=== PATIENT | female | born 1960 | race Caucasian/White ===

== ENCOUNTER 2025-09-25 09:54 | Outpatient (REF) | payer MEDICARE, MEDICAID, SELFPAY ==
--- NOTE | ~2025-09-25 | XR_ITS ---
EXAMINATION: XR LUMBOSACRAL SPINE CLINICAL INFORMATION: M43.16 - Spondylolisthesis, lumbar region COMPARISON: None available. TECHNIQUE: Lateral views in neutral, flexion and extension position. AP view. Upright position. FINDINGS: S-shaped curvature of the thoracolumbar spine with a levoconvex rotoscoliosis apex at L2. Grade 1 anterolisthesis at L4-5 in neutral position which persists during flexion and extension position. Grade 1 retrolisthesis at L1 to in neutral position which remains unchanged during flexion and extension position. Multilevel marginal osteophyte formation and endplate sclerosis decreased intervertebral disc height throughout the lower thoracic and upper lumbar spine. No acute cortical disruption. Vascular calcifications, aorta. XR/XR lumbar spine 4V min IMPRESSION: Multilevel thoracolumbar spondylosis and levoconvex rotoscoliosis. Grade 1 anterolisthesis L4-5 and grade 1 retrolisthesis L1-2 without instability. Atherosclerosis disease. Electronically signed by: Colby Howard MD 09/25/2025 11:36 AM MADELYN TEIXEIRA
== END 2025-09-25 09:55 | disposition home or self-care (01) ==
LOC: HO.HOSX 09:54
PROVIDERS: PCP Nurse Practitioner Family; Referring Provider Nurse Practitioner Family; Visit Provider Neurological Surgery
DX: M43.16 Spondylolisthesis, lumbar region (principal)
CPT/HCPCS: 72110; 99202

== ENCOUNTER 2025-09-25 09:54 | Outpatient (AMB) | payer MEDICARE, MEDICAID, SELFPAY ==
--- OUTSIDE RECORDS SUMMARY | 2025-09-23 14:40 | XMS_ITS | Encounter Summary ---
Author Organization [facility] Address [address] [place] [address] Phone Care Team Providers Care Supervisor Stave Cutting Name Role Phone Henry Velez MD Unavailable [email or web address] Ike Gomez DO Unavailable [phone] Aryan Sears MD Unavailable + [phone] Shi Espana NP Primary Care Provider [phone]- [phone] Reason for Referral * MRI/CAT Scan - Authorized Specialty Diagnoses / Procedures Referred By Roddy marie Referred To Contact Radiology Diagnoses Rotator cuff arthropathy of left shoulder Procedures CT Shoulder (Left) Mars Berman PA-C [address] [place] [address] [place] [address] Phone: tel: fax: [email or web address] Referral ID Status Reason Start Date Expiration Date V isits Requested Visits Authorized [id number] Authorized 09/23/2025 09/23/2026 1 1 Reason for Visit * Reason Comments Shoulder Pain Encounter Details Date Type Department Care Team ([facility] st Contact Info) Description 09/23/2025 2:40 PM EST Office Visit [facility] Orthopedics & Sports Medicine [address] [place] [phone] Ike Gomez DO [address] [facility] [place] [place] [address] Mars Berman PA-C [address] [place] [address] [place] [phone] [email or web address] Rotator cuff arthropathy of left shoulder (Primary Dx); Shoulder pain; Primary osteoarthritis of left shoulder Social History Tobacco Use Types Packs/Day Years Used Date Smoking Tobacco: Every Day Cigarettes 0.3 45 Smokeless Tobacco: Never Alcohol Use Standard Drinks/Week Comments No 0 (1 standard drink = 0.6 oz pur e alcohol) none for 30 yrs Education Answer Date Recorded Are you interested in more education? Not on eric e 03/09/2023 Are you concerned about learning? Not on file 03/09/2023 No 03/09/2023 No 03/09/2023 Digital Access Answer Date Recorded No 04/08/2023 No 04/08/2023 Reliable internet access at home? Not on file 04/08/2023 Device with a working camera? Not on file Intimate Partner Violence Answer Date R ecorded Are you denied basic needs s uch as food, clothing, or medical care? No 12/05/2023 In the past 12 months have y ou been in a relationship with a person who hurts, threatens, or tries to control you? No 12/05/2023 Are you denied basic needs s uch as food, clothing, or medical care? No 12/05/2023 In the past 12 months have y ou been in a relationship with a person who hurts, threatens, or tries to control you? No 12/05/2023 Comments No Sex and Gender Information Value Date Recorded Sex Assigned at Female 06/22/2023 7:36 AM EDT Legal Sex Female 2:57 PM EDT Gender Identity Female 06/22/2023 7:36 AM EDT Sexual Orientation Straight 06/22/2023 7: 36 AM EDT documented as of this encounter Progress Notes * Mars Berman PA-C - 09/23/2025 2:40 PM EST [facility] Orthopedics & Sports Medicine Date of Visit: 09/24/2025 Reason for Appointment: Chronic bilateral shoulder pain, worse symptomatically on the left HPI: Sharon Garza is a 64 y.o. female who presents today for evaluation of acute on chronic bilateral shoulder pain. Patient has a history of shoulder pain dating back approximately 10 years. Has undergone extensive conservative care for both shoulders including multiple steroid injections performed through her imaging nurse office, greater than 6 months of physical therapy, oral oxycodone, rest, ice and activity modification. Despite the conservative care, patient feels that the left shoulder specifically has worsened in pain and also feels unstable with motion. Patient comes in today to discuss possible shoulder replacement as prior to this appointment has exhausted nonsurgical options Exam: In general, the patient is in no acute distress. Affect is appropriate. Alert and oriented ??3. Breathing is nonlabored. Left shoulder examination reveals painful passive range of motion with notable crepitus and instability. Supraspinatus strength 4- out of 5. Infraspinatus and subscapularis 4+ out of 5. Patient with significant discomfort during range of motion evaluation Right shoulder examination reveals no deformity. Passive range of motion near full. 4 out of 5 strength testing of supraspinatus. Imaging: X-rays were performed in the office today and independently interpreted by provider. Rightshoulder x-rays reveal no acute abnormality. Mild glenohumeral osteoarthritis with high riding humeral head. Left shoulder with advanced glenohumeral arthritis and [id number] articulation within the posterior aspect. High riding humeral head consistent with rotator cuff tear. Acromion and humeralhead with near articulation Asssessment: Bilateral rotator cuff arthropathy with left shoulder worse radiographically and symptomatically Plan: We had an extensive conversation today regarding the radiographic and clinical exam findings.Again, patient has been undergoing extensive conservative care prior to coming to this appointment and the main objective today was to discuss shoulder replacement as she feels that conservative treatment is exhausted. Recent steroid injection performed with her imaging nurse 2 months prior which was performed on both shoulders. Patient has met Dr. Gomez previously and wishes to move forward with preoperative planning for a left reverse shoulder replacement. CT scan will be ordered for preop planning and patient will follow-up with Dr. Gomez after imaging to discuss surgical timing and booking.. All questions were answered to the patient's content today. Sharon Garza verbalizes understanding and agreement with plan. Mars Berman PA-C documented in this encounter Plan of Treatment Scheduled Orders Name Type Priority Associated Diagnoses Orde r Schedule CT Shoulder (Left) Imaging Routine Rotator cuff arthropathy of left shoulder Expected: 09/23/2025, Expires: 09/23/2026 documented as of this encounter Visit Diagnoses Diagnosis Rotator cuff arthropathy of left shoulder- Primary Shoulder pain Pain in joint, shoulder region Primary osteoarthritis of left shoulder documented in this encounter Care Teams Supervisor Stave Cutting Relationship Specialty Start Date End Date Shi Espana NP [address] [place] [phone] [email or web address] PCP - General Nurse Practitioner 09/29/24 Henry Velez MD [email or web address] Historical LMR Provider 08/30/17 Ike Gomez DO [address] [place] [address] Orthopedics & Sports Medicine, [facility] [place] [address] [email or web address] Historical LMR Provider 08/30/17 Aryan Sears MD [address] [place] [phone] Historical LMR Provider 08/30/17 documented as of this encounter Additional Source Comments The information contained in this document represents components of the legal health record. It is not the complete legal health record.[facility]
--- OUTSIDE RECORDS SUMMARY | 2025-09-23 14:47 | XMS_ITS | Encounter Summary ---
Author Organization [facility] Address [address] [place] [address] Phone Care Team Providers Care Manufacturing Millwright Name Role Phone Henry Velez MD Unavailable [email or web address] Ike Gomez DO Unavailable [phone] Aryan Sears MD Unavailable [phone] Shi Espana NP Primary Care Provider [phone] Encounter Details Date Type Department Care Team (Late st Contact Info) Description 09/23/2025 2:47 PM EST - 09/23/2025 2:54 PM [facility] Hospital Encounter [address] [address] Mars Berman PA-C [address] [place] [address] [place] [address] [email or web address] Arrived Discharge Disposition: Home or Self Care Social History Tobacco Use Types Packs/Day Years [...] AM EDT documented as of this encounter Medications at Time of Discharge albuterol (PROAIR HFA) 90 mcg/actuation inhaler Inhale 2 puffs into the lungs 4 (four) times a day. betamethasone, augmented, (DIPROLENE) 0.05 % ointment APPLY OINTMENT TOPICALLY ONCE DAILY TO AFFECTED AREA(S). DO NOT EXCEED 45 GRAMS PER WEEK 11/14/2023 buPROPion (WELLBUTRIN XL) 300 MG ER 24 hr tablet Take 300 mg by mouth daily. 04/30/2024 cetirizine (ZYRTEC) 10 MG tablet Take 1 tablet by mouth as needed. 09/18/2023 cholecalciferol (VITAMIN D3) 4,000 unit tablet Take 4,000 Units by mouth daily. fluconazole (DIFLUCAN) 150 MG tablet as needed. 02/14/2020 hydroCHLOROthiazide (HYDRODIURIL) 25 MG tablet 1 tablet ipratropium/albuter ol sulfate (COMBIVENT INHL) Inhale 1 puff into the lungs 4 (four) times a day as needed. levothyroxine (SYNTHROID) 50 MCG tablet 1 tab(s) daily lidocaine 5 % ointment APPLY OINTMENT EXTERNALLY 4 TIMES DAILY TO AFFECTED AREA NEEDED 36 g 07/28/2021 meloxicam (MOBIC) 15 MG tabletIndications:O steoarthritis of right knee TAKE ONE TABLET BY MOUTH DAILY 90 tablet 12/20/2021 multivit with calcium,iron,min (MULTIPLE VITAMIN, WOMENS ORAL) Take by mouth. ondansetron (ZOFRAN-ODT) 4 MG disintegrating tablet Take 1 tablet (4 mg total) by mouth every 6 (six) hours as needed. 30 tablet 02/15/2019 oxyCODONE HCl 10 mg TabIndications:Oste oarthritis of left knee Take 1 tablet (10 mg total) by mouth every 6 (six) hours as needed. 112 tablet 09/22/2021 pantoprazole sodium (PANTOPRAZOLE ORAL) Take by mouth daily. polyethylene glycol (MIRALAX) 17 gram/dose powder Take 17 g by mouth daily. pregabalin (LYRICA) 150 MG capsuleIndications: Fibromyalgia Take 1 capsule by mouth 3 times daily 90 capsule 12/27/2021 RESTASIS 0.05 % suspension Place 1 drop into each eye 2 (two) times a day. 10/07/2023 clonazePAM (KLONOPIN) 0.5 MG tablet Take by mouth 2 (two) times a day as needed. 11/16/2023 famotidine (PEPCID) 40 MG tablet 40 mg 2 (two) times a day. 03/01/2020 LASTACAFT 0.25 % Drop 3 07/12/2019 topiramate (TOPAMAX ORAL) Take by mouth daily. documented as of this encounter Plan of Treatment Not on file documented as of this encounter Procedures Procedure Name Priority Date/Time Associated Diagnosis Comments XR SHOULDER 2 VIEWS (LEFT) Routine 09/23/2025 3:09 PM EST Shoulder pain documented in this encounter Results * XR SHOULDER 2 VIEWS (LEFT) (09/23/2025 3:09 PM EST) Narrative SYSTEMGENERATED, DOCUMENTATION - 09/23/2025 3:09 PM EST This image report has been auto-finalized and has not been read by a Radiologist. Interpretation has been included in the provider encounter note for this date of service. Mars Berman PA-C IMG XR UPPER EXTREMITY Mita l Result documented in this encounter Visit Diagnoses Diagnosis Shoulder pain Pain in joint, shoulder region documented in this encounter Care Teams Manufacturing Millwright Relationship Specialty Start Date End Date Shi Espana NP [address] [place] [phone] [email or web address] PCP - General Nurse Practitioner 09/29/24 Henry Velez MD [email or web address] Historical LMR Provider 08/30/17 Ike Gomez DO [address] [place] [address] Orthopedics & Sports Medicine, [place] [address] [email or web address] Historical LMR Provider 08/30/17 Aryan Sears MD [address] [place] [phone] Historical LMR Provider 08/30/17 documented as of this encounter Additional Source Comments The information contained in this document represents components of the legal health record. It is not the complete legal health record.[facility]
--- OUTSIDE RECORDS SUMMARY | 2025-09-23 14:55 | XMS_ITS | Encounter Summary ---
Author Organization [facility] Address [address] [place] [address] Phone Care Team Providers Care Wood Box Maker Name Role Phone Henry Velez MD Unavailable [email or web address] Ike Gomez DO Unavailable [phone] Aryan Sears MD Unavailable [phone] Shi Espana NP Primary Care Provider [phone] Encounter Details Date Type Department Care Team (Late st Contact Info) Description 09/23/2025 2:55 PM EST - 09/23/2025 11:59 PM [facility] Hospital Encounter [address] [address] Mars Berman PA-C [address] [place] [address] [place] [address] [email or web address] Arrived Discharge Disposition: Home or [...] Associated Diagnosis Comments XR SHOULDER 2 VIEWS (RIGHT) Routine 09/23/2025 3:09 PM EST Chronic right shoulder pain documented in this encounter Results * XR SHOULDER 2 VIEWS (RIGHT) (09/23/2025 3:09 PM EST) Narrative SYSTEMGENERATED, DOCUMENTATION - 09/23/2025 3:09 PM EST This image report has been auto-finalized and has not been read by a Radiologist. Interpretation has been included in the provider encounter note for this date of service. Mars Berman PA-C IMG XR UPPER EXTREMITY Mita l Result documented in this encounter Visit Diagnoses Diagnosis Chronic right shoulder pain Pain in joint, shoulder region documented in this encounter Care Teams Wood Box Maker Relationship Specialty Start Date End Date Shi Espana NP [address] [place] [phone] [email or web address] [email or web address] PCP - General Nurse Practitioner 09/29/24 Henry Velez MD [email or web address] Historical LMR Provider 08/30/17 Ike Gomez DO [address] [place] [address] Orthopedics & Sports Medicine, [place] [address] [email or web address] Historical LMR Provider 08/30/17 Aryan Sears MD [address] [place] [phone] Historical LMR Provider 08/30/17 documented as of this encounter Additional Source Comments The information contained in this document represents components of the legal health record. It is not the complete legal health record.[facility]
--- NOTE | 2025-09-25 10:07 | A.SPINEOV_ITS ---
Vital Signs 09/25/25 10:08 Height 5 ft 3 in Weight 188 lb 7 oz BMI 33.4 Intake Visit Reasons: lumbar back pain Intake Note: Ms. Garza is here today c/o low back pain, that radiate to the legs. MRI done at [facility]. Chief Client Officer Required: No Allergies Latex, Natural Rubber Allergy (Severe, Verified 09/25/25 10:09) Anaphylaxis Physical Exam Vital Signs: BMI result Body Mass Index 33.4 Assessment & Plan Assessment & Plan (1) Spondylolisthesis of lumbar region: Code(s): M43.16 - Spondylolisthesis, lumbar region Category: Medical Plan: Dear colleague On 09/25/2025, I saw for 2nd opinion Sharon Garza to the office today with a chief complaint of severe chronic low back pain. HPI: This 64-year-old female has a 10+ history of chronic low back pain. The pain is always present. She rates the pain 8/10. She has tried multiple injections over time with varying success. She had multiple course of physical therapy. The last course significantly aggravated her symptoms. Bending forward she can do but extension is very painful. She does have a sciatic component intermittently going into the right thigh and groin. Before COV, she was able to do daily hikes and walks but in the last few years her social life has significantly being impacted. She can not walk for more than a half a mi or stand longer than 30 minutes. Sitting is painful after half an hour. She denies weakness or numbness. [facility] who offered her an L4-5 lumbar fusion. The following conservative treatment options were tried without success antiinflammatories, tylenol, physical therapy, cortisone shots. PMH: Hypertension, GERD, hypothyroidism, Fibromyalgia, esophageal spam for which myotomy. Stable cardiac murmur. Shortness of breath. She does see a manager mountain and uses inhalers. Medications: Inhaler, hydrochlorothiazide, levothyroxine, hydrochloroquine, pantoprazole, oxycodone 10 mg 4 times a day since 2004. Allergies: Latex. Social history: . Nonsmoker Physical Exam: Pleasant female. Height 5'3 weight 188 lb. Inspection of the lumbar spine reveals no deformities. Extension is very uncomfortable. There is diffuse pain on palpation over the lumbar spine. She is in significant agony when she changes positions. Straight leg raise produces back pain. No motor or sensory deficits. Radiological Studies: MRI done at [facility] on 04/26/2025 shows a grade 1-2 L4-5 spondylolisthesis with associated central spinal stenosis in addition there is lumbar degenerative disc disease L3-4 L1-L2. A dynamic lumbar x-ray shows an unstable L4-5 grade 2 spondylolisthesis that moves with flexion-extension. In addition there is a mild dextroscoliosis at L1-L2. Impression/Plan: This patient is suffering from progressive intractable low back pain due to an unstable grade 2 L4-5 spondylolisthesis. She failed conservative management and the symptoms are debilitating and interfering with the social life. I offered her an oblique lumbar interbody fusion L4-5. She is scheduled for 12/01/2025. We will get the notes from the manager mountain and staff command and control officer. She recently had a clearance done by her primary care physician. Thank you for allowing me to participate in your patients care. total time spent was 50 minutes in counseling ,coordination of plan, personal review of imaging, surgical decision making and subsequent plan Gumaro Luz MD, PhD Spine Fellowship Trained Neurosurgeon Director, [facility] Orders: Orders XR lumbar spine 4V min Today M43.16 - Spondylolisthesis, lumbar region Coding Level of Care Code New Pt Level 4 (29815) Diagnoses Spondylolisthesis of lumbar region M43.16
[2025-09-25 10:08] VITALS: BMI 33.4
--- OUTSIDE RECORDS SUMMARY | 2025-09-25 11:14 | XMS_ITS | Encounter Summary ---
Author Organization [facility] Address [address] [place] [address] Phone Care Team Providers Care Dark Room Attendant Name Role Phone Henry Velez MD Unavailable [email or web address] Ike Gomez DO Unavailable Aryan Sears MD Unavailable Shi Espana SUPPLY SERVICE WORKER Primary Care Provider Shi Espana NP Primary Care Provider [phone] Encounter Details Date Type Department Care Team (Latest Contact Info) Description 11/13/2023 Transcribe Orders Virtual Department [address] [place] [address] Peter Ascencio MD [address] [place] [phone] [email or web address] Achalasia (Primary Dx) Social History Tobacco Use Types Packs/Day Years Used Date Smoking Tobacco: Former Cigarettes 0.3 45 1 953 - 1998 Smokeless Tobacco: Never Alcohol Use Standard Drinks/Week Comments No 0 (1 standard drink = 0.6 oz pur e alcohol) Education Answer Date Recorded Are you interested in more education? Not on eric e 03/09/2023 Are you concerned about learning? Not on file 03/09/2023 No 03/09/2023 No 03/09/2023 Digital Access Answer Date Recorded No 04/08/2023 No 04/08/2023 Reliable internet access at home? Not on file 04/08/2023 Device with a working camera? Not on file Comments No Sex and Gender Information Value Date Recorded Sex Assigned at Female 06/22/2023 7:36 AM EDT Legal Sex Female 2:57 PM EDT Gender Identity Female 06/22/2023 7:36 AM EDT Sexual Orientation Straight 06/22/2023 7: 36 AM EDT documented as of this encounter Plan of Treatment Not on file documented as of this encounter Results * FL BARIUM SWALLOW ESOPHAGRAM DOUBLE CONTRAST (11/30/2023 9:09 AM EST) Anatomical Region Laterality Modality Chest Computed Radiogr aphy 11/30/2023 12:1 9 PM EST Impressions 11/30/2023 12:37 PM EST Esophageal spasm with smooth narrowing at the level of the GE junction causing persistent hold-up to passage of a 13 mm barium tablet. No current findings pathognomonic for achalasia. FLUOROSCOPY TIME: 2 minutes 33 seconds NUMBER OF IMAGES: [id number] ATTESTATION: I, Peter Olson as teaching physician, have reviewed the images for this case and if necessary edited the report originally created by Stas Joyner. Narrative 11/30/2023 12:37 PM EST BARIUM SWALLOW ESOPHAGRAM DOUBLE CONTRAST HISTORY: Achalasia. Dysphasia. Epigastric pain. COMPARISON: Cervical spine radiograph 07/26/2020. OPERATORS: Stas Joyner SUPERVISING PHYSICIAN: Peter Olson TECHNIQUE: Double contrast barium swallow examination was performed with Sodium Carbonate and Barium. FINDINGS: A preliminary lateral view of the neck demonstrates moderate multilevel degenerative disc changes, most pronounced at C4-5, C5-6, C6-7 with small ventral osteophytes present. ESOPHAGUS: Motility: Severe esophageal dysmotility evidenced by spasm in the distal half. Mucosa: No gross mucosal pathology demonstrated fluoroscopically. Distensibility: Smooth narrowing at the level of the GE junction with persistent retention of a 13 mm barium tablet. Direct visualization is recommended. Normal distensibility of the upper and middle esophagus, without luminal dilatation. GASTROESOPHAGEAL JUNCTION: Small sliding hiatal hernia elicited during a prone Valsalva maneuver. GASTROESOPHAGEAL REFLUX: None observed. Procedure Note Peter Olson MD - 11/30/2023 BARIUM SWALLOW ESOPHAGRAM DOUBLE CONTRAST HISTORY: Achalasia. Dysphasia. Epigastric pain. COMPARISON: Cervical spine radiograph 07/26/2020. OPERATORS: Stas Joyner SUPERVISING PHYSICIAN: Peter Olson TECHNIQUE: Double contrast barium swallow examination was performed withSodium Carbonate and Barium. FINDINGS: A preliminary lateral view of the neck demonstrates moderate multileveldegenerative disc changes, most pronounced at C4-5, C5-6, C6-7 with smallventral osteophytes present. ESOPHAGUS: Motility: Severe esophageal dysmotility evidenced by spasm in the distalhalf. Mucosa: No gross mucosal pathology demonstrated fluoroscopically. Distensibility: Smooth narrowing at the level of the GE junction withpersistent retention of a 13 mm barium tablet. Direct visualization isrecommended. Normal distensibility of the upper and middle esophagus,without luminal dilatation. GASTROESOPHAGEAL JUNCTION: Small sliding hiatal hernia elicited during aprone Valsalva maneuver. GASTROESOPHAGEAL REFLUX: None observed. IMPRESSION: Esophageal spasm with smooth narrowing at the level of the GE junctioncausing persistent hold-up to passage of a 13 mm barium tablet. No currentfindings pathognomonic for achalasia. FLUOROSCOPY TIME: 2 minutes 33 seconds NUMBER OF IMAGES: [id number] ATTESTATION: I, Peter Olson as teaching physician, have reviewed theimages for this case and if necessary edited the report originally createdby Stas Joyner. Peter Ascencio MD IM FL MISC Final Resu lt documented in this encounter Visit Diagnoses Diagnosis Achalasia- Primary Achalasia and cardiospasm Achalasia Achalasia and cardiospasm documented in this encounter Care Teams Dark Room Attendant Relationship Specialty Start Date End Date Shi Espana NP [address] [place] [phone] [email or web address] PCP - General Nurse Practitioner 06/28/23 09/28/24 Shi Espana NP [address] [place] [phone] [email or web address] [email or web address] [email or web address] south PCP - General Nurse Practitioner 09/29/24 Henry Velez MD [email or web address] Historical LMR Provider 08/30/17 Ike Gomez DO [address] [place] [address] Orthopedics & Sports Medicine, [place] [address] [email or web address] Historical LMR Provider 08/30/17 Aryan Sears MD [address] [place] [phone] Historical LMR Provider 08/30/17 documented as of this encounter Additional Source Comments The information contained in this document represents components of the legal health record. It is not the complete legal health record.[facility]
--- OUTSIDE RECORDS SUMMARY | 2025-09-25 11:14 | XMS_ITS | Encounter Summary ---
Author Organization [facility] Address [address] [place] [address] Phone Care Team Providers Care Compensation Vice President Name Role Phone Henry Velez MD Unavailable [email or web address] Ike Gomez DO Unavailable [phone] Aryan Sears MD Unavailable [phone] Shi Espana NP Primary Care Provider [phone] Shi Espana NP Primary Care Provider [phone] Encounter Details Date Type Department Care Team (Late st Contact Info) Description 10/15/2023 Procedure Pass [facility] Endoscopy Admitting Dept Virtual Department [address] [place] [address] Social History Tobacco Use Types Packs/Day Years [...] on file documented as of this encounter Visit Diagnoses Not on filedocumented in this encounter Care Teams Compensation Vice President Relationship Specialty Start Date End Date Shi Espana NP [address] [place] [address] [email or web address] PCP - General Nurse Practitioner 06/28/23 09/28/24 Shi Espana NP [address] [place] [address] [email or web address] [facility] PCP - General Nurse Practitioner 09/29/24 Henry Velez MD [email or web address] Historical LMR Provider 08/30/17 Ike Gomez DO [address] [place] [address] Orthopedics & Sports Medicine, [place] [address] [email or web address] Historical LMR Provider 08/30/17 Arayn Sears MD [address] [place] [address] Historical LMR Provider 08/30/17 documented as of this encounter Additional Source Comments The information contained in this document represents components of the legal health record. It is not the complete legal health record.[facility]
--- OUTSIDE RECORDS SUMMARY | 2025-09-25 11:14 | XMS_ITS | Encounter Summary ---
Author Organization [facility] Address [address] [place] [address] Phone Care Team Providers Care Surface Grinding Machine Hand Name Role Phone Henry Velez MD Unavailable [email or web address] Ike Gomez DO Unavailable [phone] Aryan Sears MD Unavailable Amy Sawyer PA-C Unavailable [phone] Lorri Haynes MD Unavailable [phone] Aryan Sears MD Primary Care Provider Shi Espana NP Primary Care Provider Shi Espana NP Primary Care Provider [phone] Reason for Referral * Physical Therapy (Routine) - Closed Specialty Diagnoses / Procedures Referred By Roddy marie Referred To Contact Physical Therapy Diagnoses Encounter for rehabilitation Left Knee Pain Procedures Evaluate & Treat Shi Espana NP Phone: tel: fax: [email or web address] [address] [place] [address] Phone: tel: Referral ID Status Reason Start Date Expiration Date Visits Re quested Visits Authorized [id number] Closed 01/26/2020 11/11/2020 99 99 Encounter Details Date Type Department Care Team (Latest Contact Info) Description 01/07/2020 Transcribe Orders [facility] [address] [place] [address] Shi Espana NP [address] [place] [address] [email or web address] Alliancegeneral [facility] Encounter for rehabilitation (Primary Dx) Social History Tobacco Use Types Packs/Day Years Used Date Smoking Tobacco: Former Cigarettes 0.3 45 1 223 - 6341 Smokeless Tobacco: Never Alcohol Use Standard Drinks/Week Comments No 0 (1 standard drink = 0.6 oz pur e alcohol) Comments No Sex and Gender Information Value Date Recorded Sex Assigned at Female 06/22/2023 7:36 AM EDT Legal Sex Female 2:57 PM EDT Gender Identity Female 06/22/2023 7:36 AM EDT Sexual Orientation Straight 06/22/2023 7: 36 AM EDT documented as of this encounter Plan of Treatment Not on file documented as of this encounter Procedures Procedure Name Priority Date/Time Associated Diagnosis Comments AMB REFERRAL TO [facility] PHYSICAL THERAPY Routine 01/26/2020 6:18 PM EDT Encounter for rehabilitation documented in this encounter Results * Ambulatory referral to [facility] Physical Therapy (01/26/2020 6:18 PM EDT) Shi Espana NP AMB [facility] REFERRALS Final Resu lt documented in this encounter Visit Diagnoses Diagnosis Encounter for rehabilitation- Primary documented in this encounter Care Teams Surface Grinding Machine Hand Relationship Specialty Start Date End Date Aryan Sears MD [address] [place] [address] PCP - General Family Medicine 09/27/17 06/27/23 Shi Espana NP [address] [place] [address] [email or web address] PCP - General Nurse Practitioner 06/28/23 09/28/24 Shi Espana NP [address] [place] [address] [email or web address] PCP - General Nurse Practitioner 09/29/24 Henry Velez MD [email or web address] Historical LMR Provider 08/30/17 Ike Gomez DO [address] [facility] Orth[facility] Sports [facility], [place], [place] [id number] [email or web address] Historical LMR Provider 08/30/17 Aryan Sears MD [address] [place] [phone] Historical LMR Provider 08/30/17 Amy Sawyer, SARYC [address] [place] [address] [facility], [place] [address] Historical LMR Provider 08/30/17 11/19/21 Lorri Haynes MD 4 [facility], [place] [address] Historical LMR Provider 08/30/17 documented as of this encounter Additional Source Comments The information contained in this document represents components of the legal health record. It is not the complete legal health record.[facility]
--- OUTSIDE RECORDS SUMMARY | 2025-09-25 11:14 | XMS_ITS | Encounter Summary ---
Author Organization [facility] Address [address] [place] [address] Phone Care Team Providers Care Roof Tile Layer Name Role Phone Henry Velez MD Unavailable [facility] [email or web address] Ike Gomez DO Unavailable Aryan Sears MD Unavailable Amy Sawyer PA-C Unavailable Lorri Haynes MD Unavailable Aryan Sears MD Primary Care Provider Shi Espana NP Primary Care Provider Shi Espana CUTTING TABLE OPERATOR Primary Care Provider Encounter Details Date Type Department Care Team (Late st Contact Info) Description 01/24/2019 Ancillary Orders Virtual Department [address] [place] [address] Aryan Sears MD [address] [place] [address] Social History Tobacco Use Types Packs/Day Years Used Date Smoking Tobacco: Former Cigarettes 0.3 45 1 953 - 1998 Smokeless Tobacco: Never Alcohol Use Standard Drinks/Week Comments No 0 (1 standard drink = 0.6 oz pur e alcohol) Comments Unknown Sex and Gender Information Value Date Recorded Sex Assigned at Female 06/22/2023 7:36 AM EDT Legal Sex Female 2:57 PM EDT Gender Identity Female 06/22/2023 7:36 AM EDT Sexual Orientation Straight 06/22/2023 7: 36 AM EDT documented as of this encounter Plan of Treatment Not on file documented as of this encounter Visit Diagnoses Not on filedocumented in this encounter Care Teams Roof Tile Layer Relationship Specialty Start Date End Date Aryan Sears MD [address] [place] [phone] PCP - General Family Medicine 09/27/17 06/27/23 Shi Espana NP [address] [place] [phone] [email or web address], [email or web address] PCP - General Nurse Practitioner 06/28/23 09/28/24 Shi Espana NP [address] [place] [address] [email or web address] PCP - General Nurse Practitioner 09/29/24 Henry Velez MD [email or web address] Historical LMR Provider 08/30/17 Ike Gomez DO [address] [place] [address] Orthopedics & Sports Medicine, [place] [address] [email or web address] Historical LMR Provider 08/30/17 Aryan Sears MD [address] [place] [phone] Historical LMR Provider 08/30/17 Amy Sawyer PA-C 4 [facility] Orthopedics & Sports Medicine, [facility] [place] [address] [email or web address] Historical LMR Provider 08/30/17 11/19/21 Lorri Haynes MD 4 [facility] Orthopedics & Sports [facility], [facility] [place] [address] [email or web address] Historical LMR Provider 08/30/17 documented as of this encounter Additional Source Comments The information contained in this document represents components of the legal health record. It is not the complete legal health record.[facility]
--- OUTSIDE RECORDS SUMMARY | 2025-09-25 11:14 | XMS_ITS | Encounter Summary ---
Author Organization [facility] Address [address] [place] [address] Phone Care Team Providers Care Lapel Padder Name Role Phone Aryan Sears MD Primary Care Provider Henry Velez MD Unavailable [email or web address] Ike Gomez DO Unavailable [phone] Aryan Sears MD Unavailable Amy Sawyer PA-C Unavailable [phone] Lorri Haynes MD Unavailable Aryan Sears MD Primary Care Provider Shi Espana NP Primary Care Provider Shi Espana NP Primary Care Provider Encounter Details Date Type Department Care Team (Latest Contact Info) Description 08/08/2017 Ancillary Orders [facility] Department of Orthopaedic Surgery, Arthroplasty Service [address] [facility], 3rd Floor, [address] [place] [address] Fany Estrella MD, PhD [address] [place] [address] [address] [place] [address] [email or web address] Left knee pain, unspecified chronicity; Right knee pain, unspecified chronicity Social History Tobacco Use Types Packs/Day Years Used Date Smoking Tobacco: Never Comments Unknown Sex and Gender Information Value Date Recorded Sex Assigned at Female 06/22/2023 7:36 AM EDT Legal Sex Female 2:57 PM EDT Gender Identity Female 06/22/2023 7:36 AM EDT Sexual Orientation Straight 06/22/2023 7: 36 AM EDT documented as of this encounter Plan of Treatment Not on file documented as of this encounter Results * XR KNEE 4 OR MORE VIEWS (RIGHT) (08/08/2017 12:20 PM EDT) Anatomical Region Laterality Modality Knee Right Radiographic Luz Marina ging 08/08/2017 1:31 PM EDT Impressions 08/08/2017 4:44 PM EDT Moderate degenerative changes of the left knee lateral compartment with large joint effusion. Narrative 08/08/2017 4:44 PM EDT XR KNEE 4 OR MORE VIEWS (RIGHT), XR KNEE 4 OR MORE VIEWS (LEFT) COMPARISON: None FINDINGS: Left knee: Moderate lateral compartment joint space narrowing with osteophyte formation and valgus angulation. Large joint effusion. No fracture or dislocation. The patellofemoral compartment shows normal alignment and minimal degenerative changes. Right knee: Minimal degenerative changes without joint space narrowing. No joint effusion. No fracture or dislocation. Patellofemoral compartment shows normal alignment. Procedure Note Arsenio Smith MD - 08/08/2017 XR KNEE 4 OR MORE VIEWS (RIGHT), XR KNEE 4 OR MORE VIEWS (LEFT) COMPARISON: None FINDINGS: Left knee: Moderate lateral compartment joint space narrowing withosteophyte formation and valgus angulation. Large joint effusion. No fracture or dislocation. The patellofemoral compartment shows normal alignment andminimal degenerative changes. Right knee: Minimal degenerative changes without joint space narrowing. Nojoint effusion. No fracture or dislocation. Patellofemoral compartment showsnormal alignment. IMPRESSION: Moderate degenerative changes of the left knee lateral compartment withlarge joint effusion. Fany Estrella MD, PhD IMG XR LOWER EXTREMITY Fi nal Result documented in this encounter Visit Diagnoses Diagnosis Left knee pain, unspecified chronicity Right knee pain, unspecified chronicity Left knee pain, unspecified chronicity Right knee pain, unspecified chronicity documented in this encounter Care Teams Lapel Padder Relationship Specialty Start Date End Date Aryan Sears MD [address] [place] [phone] PCP - General Family Medicine 08/08/17 09/26/17 Aryan Sears MD [address] [place] [phone] PCP - General Family Medicine 09/27/17 06/27/23 Shi Espana NP [address] [place] [phone] [email or web address] PCP - General Nurse Practitioner 06/28/23 09/28/24 Shi Espana, ANA [address] [place] [phone] [email or web address] Securityhawthorn children[facility] psychiatric [facility] PCP - General Nurse Practitioner 09/29/24 Henry Velez MD [email or web address] Historical LMR Provider 08/30/17 Ike Gomez DO [address] [place] [address] Orthopedics & Sports Medicine, [place] [address] [email or web address] Historical LMR Provider 08/30/17 Aryan Sears MD [address] [place] [phone] Historical LMR Provider 08/30/17 Amy Sawyer PA-C [facility] Orth[facility]ics & Sports Medicine, [facility] [place] [address] [email or web address] Historical LMR Provider 08/30/17 11/19/21 Lorri Haynes MD [facility] Orthopedics & Sports [facility], [facility] [place] [address] [email or web address] Historical LMR Provider 08/30/17 documented as of this encounter Additional Source Comments The information contained in this document represents components of the legal health record. It is not the complete legal health record.[facility]
--- OUTSIDE RECORDS SUMMARY | 2025-09-25 11:14 | XMS_ITS | Encounter Summary ---
Author Organization [facility] Address [address] [place] [address] Phone Care Team Providers Care Spooler Rubber Strand Name Role Phone Henry Velez MD Unavailable [email or web address] Ike Gomez DO Unavailable [phone] Aryan Sears MD Unavailable Amy Sawyer PA-C Unavailable [phone] Lorri Haynes MD Unavailable [phone] Aryan Sears MD Primary Care Provider Shi Espana NP Primary Care Provider Shi Espana SAILBOAT CAPTAIN Primary Care Provider [phone] Encounter Details Date Type Department Care Team (Late st Contact Info) Description 02/12/2019 Procedure Pass OR Admitting Dept - Virtual Department [address] [place] [address] Social History Tobacco Use Types Packs/Day Years [...] on filedocumented in this encounter Care Teams Spooler Rubber Strand Relationship Specialty Start Date End Date Aryan Sears MD [address] [place] [phone] PCP - General Family Medicine 09/27/17 06/27/23 Shi Espana NP [address] [place] [phone] [email or web address] PCP - General Nurse Practitioner 06/28/23 09/28/24 Shi Espana NP [address] [place] [phone] [email or web address] PCP - General Nurse Practitioner 09/29/24 Henry Velez MD [email or web address] Historical LMR Provider 08/30/17 Ike Gomez DO [address] [place] [address] Orthopedics & Sports [facility], [place] [address] [email or web address] Historical LMR Provider 08/30/17 Aryan Sears MD [address] [place] [phone] Historical LMR Provider 08/30/17 Amy Swayer PA-C [address] [place] [address] Orthopedics Sports [facility], [place] [address] Historical LMR Provider 08/30/17 11/19/21 Lorri Haynes MD [address] [place] [address] Orthopedics & Sports Medicine, [facility] [place] [address] [email or web address] Historical LMR Provider 08/30/17 documented as of this encounter Additional Source Comments The information contained in this document represents components of the legal health record. It is not the complete legal health record.[facility]
--- OUTSIDE RECORDS SUMMARY | 2025-09-25 11:14 | XMS_ITS | Encounter Summary ---
Author Organization [facility] Address [address] [place] [address] Phone Care Team Providers Care Rotary Shear Worker Helper Name Role Phone Henry Velez MD Unavailable [email or web address] Ike Gomez DO Unavailable [phone] Aryan Sears MD Unavailable [phone] Shi Espana NP Primary Care Provider [phone] Shi Espana NP Primary Care Provider [phone] Encounter Details Date Type Department Care Team (Late st Contact Info) Description 12/05/2023 Procedure Pass [facility] Endoscopy Admitting Dept Virtual Department [address] [place] [address] Social History Tobacco Use Types Packs/Day Years [...] on filedocumented in this encounter Care Teams Rotary Shear Worker Helper Relationship Specialty Start Date End Date Shi Espana NP [address] [place] [address] [email or web address] PCP - General Nurse Practitioner 06/28/23 09/28/24 Shi Espana NP [address] [place] [address] [email or web address] PCP - General Nurse Practitioner 09/29/24 Henry Velez MD [email or web address] Historical LMR Provider 08/30/17 Ike Gomez DO [address] [place] [address] Orthopedics & Sports Medicine, [place] [address] [email or web address] Historical LMR Provider 08/30/17 Aryan Sears MD [address] [place] [phone] Historical LMR Provider 08/30/17 documented as of this encounter Additional Source Comments The information contained in this document represents components of the legal health record. It is not the complete legal health record.[facility]
--- OUTSIDE RECORDS SUMMARY | 2025-09-25 11:15 | XMS_ITS | Encounter Summary ---
Author Organization [facility] Address [address] [place] [address] Phone Care Team Providers Care Outside Contractor Sales Name Role Phone Henry Velez MD Unavailable [email or web address] Ike Gomez DO Unavailable [phone] Aryan Sears MD Unavailable [phone] Shi Espana NP Primary Care Provider [phone] Encounter Details Date Type Department Care Team (Late st Contact Info) Description 09/23/2025 Ancillary Orders [address] [address] Mars Berman PA-C [address] [place] [address] [place] [address] [email or web address] Chronic right shoulder pain (Primary Dx) Social History Tobacco Use Types [...] as of this encounter Results * XR SHOULDER 2 [...] encounter Visit Diagnoses Diagnosis Chronic right shoulder pain- Primary Pain in joint, shoulder region Chronic right shoulder pain Pain in joint, shoulder region documented in this encounter Care Teams Outside Contractor Sales Relationship Specialty Start Date End Date Shi Espana NP [address] [place] [phone] [email or web address] PCP - General Nurse Practitioner 09/29/24 Henry Velez MD [email or web address] Historical LMR Provider 08/30/17 Ike Gomez DO [address] [place] [address] Orthopedics & Sports Medicine, [place] [address] [email or web address] Historical LMR Provider 08/30/17 Aryan Sears MD [address] [place] [phone] Historical LMR Provider 08/30/17 documented as of this encounter Additional Source Comments The information contained in this document represents components of the legal health record. It is not the complete legal health record.[facility]
--- OUTSIDE RECORDS SUMMARY | 2025-09-25 11:15 | XMS_ITS | Encounter Summary ---
Author Organization [facility] Address [address] [place] [address] Phone Care Team Providers Care Personal Care Worker Name Role Phone Henry Velez MD Unavailable [email or web address] Ike Gomez DO Unavailable [phone] Aryan Sears MD Unavailable [phone] Shi Espana NP Primary Care Provider [phone] Encounter Details Date Type Department Care Team (Late st Contact Info) Description 09/23/2025 Ancillary Orders [facility] Orthopedics & Sports Medicine [address] [place] [address] Mars Berman PA-C [address] [place] [address] [place] [address] [email or web address] Shoulder pain (Primary Dx) Social History Tobacco Use [...] Shoulder pain Pain in joint, shoulder region Shoulder pain- Primary Pain in joint, shoulder region documented in this encounter Care Teams Personal Care Worker Relationship Specialty Start Date End Date Shi Espana NP [address] [place] [phone] [email or web address] PCP - General Nurse Practitioner 09/29/24 Henry Velez MD [email or web address] Historical LMR Provider 08/30/17 Ike Gomez DO [address] [place] [address] Orthopedics & Sports Medicine, [place] [address] [email or web address] Historical LMR Provider 08/30/17 Aryan Sears MD [address] [place] [phone] Historical LMR Provider 08/30/17 documented as of this encounter Additional Source Comments The information contained in this document represents components of the legal health record. It is not the complete legal health record.[facility]
--- OUTSIDE RECORDS SUMMARY | 2025-09-25 11:16 | XMS_ITS | Continuity of Care Document ---
Author Organization [facility] Address [address] [place] [address] [place] [phone] Phone [phone] Care Team Providers Care Manufacturing Development Engineer Name Role Phone Kain Person Care Team Information Bottom Bleacher U navailable Social History Type Date Description Comments Sex Female Sex Unknown
--- OUTSIDE RECORDS SUMMARY | 2025-09-25 11:16 | XMS_ITS | Clinical Summary ---
Author Organization [facility] Address [address] [place] [phone] Phone Care Team Providers Care Necktie Stitcher Name Role Phone Henry Velez MD Unavailable [email or web address] DO Unavailable [phone] Aryan Sears MD Unavailable [phone] Shi Espana NP Primary Care Provider Allergies Active Allergy Reactions Criticality Noted Date Comments Avocado Other (See Comments) High 09/12/2018 Kiwi & Banana-Closes throat; Povidone-Iodine Dermatitis,Rash Low 10/04/2015 Celecoxib 02/10/2019 Heart palpitations Grape Hives High 12/04/2023 Itchy throat grapes and raisins Latex Dermatitis,Rash Low 10/05/2015 Morphine Nausea and/or Vomiting Other 09/12/2018 Gold, rash Adhesive Tape-Silicones Rash Low 02/10/2019 I am ok for today for this procedure, its when its left for a long time Medications hydroCHLOROthiazid e (HYDRODIURIL) 25 MG tablet 1 tablet Active levothyroxine (SYNTHROID) 50 MCG tablet 1 tab(s) daily Activ e albuterol (PROAIR HFA) 90 mcg/actuation inhaler Inhale 2 puffs into the lungs 4 (four) times a day. Active ipratropium/albute rol sulfate (COMBIVENT INHL) Inhale 1 puff into the lungs 4 (four) times a day as needed. Active cholecalciferol (VITAMIN D3) 4,000 unit tablet Take 4,000 Units by mouth daily. Active multivit with calcium,iron,min (MULTIPLE VITAMIN, WOMENS ORAL) Take by mouth. Ac tive ondansetron (ZOFRAN-ODT) 4 MG disintegrating tablet Take 1 tablet (4 mg total) by mouth every 6 (six) hours as needed. 30 tablet 9 Active LASTACAFT 0.25 % Drop 3 9 Active famotidine (PEPCID) 40 MG tablet 40 mg 2 (two) times a day. 0 Active fluconazole (DIFLUCAN) 150 MG tablet as needed. 0 Active lidocaine 5 % ointment APPLY OINTMENT EXTERNALLY 4 TIMES DAILY TO AFFECTED AREA NEEDED 36 g 1 Active oxyCODONE HCl 10 mg TabIndications:Ost eoarthritis of left knee Take 1 tablet (10 mg total) by mouth every 6 (six) hours as needed. 112 tablet 1 Active meloxicam (MOBIC) 15 MG tabletIndications: Osteoarthritis of right knee TAKE ONE TABLET BY MOUTH DAILY 90 tablet 2 Active pregabalin (LYRICA) 150 MG capsuleIndications :Fibromyalgia Take 1 capsule by mouth 3 times daily 90 capsule 2 Active RESTASIS 0.05 % suspension Place 1 drop into each eye 2 (two) times a day. 3 Active clonazePAM (KLONOPIN) 0.5 MG tablet Take by mouth 2 (two) times a day as needed. 4 Active cetirizine (ZYRTEC) 10 MG tablet Take 1 tablet by mouth as needed. 3 Active betamethasone, augmented, (DIPROLENE) 0.05 % ointment APPLY OINTMENT TOPICALLY ONCE DAILY TO AFFECTED AREA(S). DO NOT EXCEED 45 GRAMS PER WEEK 4 Active topiramate (TOPAMAX ORAL) Take by mouth daily. Active polyethylene glycol (MIRALAX) 17 gram/dose powder Take 17 g by mouth daily. Active pantoprazole sodium (PANTOPRAZOLE ORAL) Take by mouth daily. Active buPROPion (WELLBUTRIN XL) 300 MG ER 24 hr tablet Take 300 mg by mouth daily. 4 Active Active Problems Problem Noted Date Diagnosed Date Opioid use 06/28/2023 Chronic knee pain after tota l replacement of left knee joint 06/28/2023 Osteoarthritis of cervical spine 07/14/2020 Assessment & Plan (11/29/2020 12:05 PM EST): Reviewed x-ray indicating multilevel spondylitic changes. She will receive injection today into the areas which are most tender. Spinal enthesopathy of cervical region 0 Assessment & Plan (02/28/2021 11:07 AM EDT): Acute flare will be treated with local injection therapy today. Assessment & Plan (09/01/2020 11:33 AM EDT): Acute flare will be treated with local injection therapy today and continuance of current medication. Assessment & Plan (07/14/2020 11:12 AM EDT): She appears to have limited range of motion and cervicalgia from multilevel cervical spondylitic changes. No long track signs or signs of cervical radiculopathy. The enthesopathic flare will be treated with local injection therapy today. She does have a good pillow to use. She will stay on her same pain medications. She will avoid any heavy lifting. We will get an x-ray of the cervical spine today. Subluxation of right sternoclavicular joint 07/14 Assessment & Plan (08/06/2019 9:09 AM EDT): More tenddr and painful so I will refer her to ortho for surgical evaluation. GERD (gastroesophageal reflux disease) 9 Assessment & Plan (08/28/2025 1:48 PM EDT): Increase symptoms of regurgitation following POEM's procedure 02/2025. She becomes tearful discussing this. I offered baclofen, but she refuses having had complications from Flexeril. Will ask her to follow-up with Dr. Villa at [facility], to discuss possibility of antireflux surgery. Orders: Ambulatory referral to External General Surgery Rotator cuff impingement syndrome of right lizbeth donnie 06/12/2019 Assessment & Plan (10/03/2021 5:23 PM EST): Hx of RTC surgery Right shoulder Today Hx and exam consistent with RTC impingement Injection today-please see note Encouraged HEP PT and or MRI if remains symptomatic Assessment & Plan (06/12/2019 10:49 AM EDT): Patient is having an acute flare of right shoulder impingement should be treated with a local injection of cortisone today. She will follow this with contrast baths, pendulum and wall walking motion exercises. History of left knee replacement 03/12/2019 Assessment & Plan (08/06/2019 9:23 AM EDT): Doing well with left knee prosthesis. Continue exercise program. Assessment & Plan (03/26/2019 12:30 PM EDT): Doing well. 10 you home exercise program. Assessment & Plan (03/12/2019 11:14 AM EDT): Doing well 1 month status post left total knee replacement. Continue PT. Continue excellent job at weight control. Medications unchanged. Admission on 02/12/2019, Discharged on 02/15/2019 Component Date Value Ref Range Status WHOLE BLOOD GLUCOSE 02/12/2019 98 70 - 99 mg/dL Final WHOLE BLOOD GLUCOSE 02/12/2019 106* 70 - 99 mg/dL Final SODIUM 02/13/2019 142 133 - 146 mmol/L Final CHLORIDE 02/13/2019 101 96 - 108 mmol/L Final POTASSIUM 02/13/2019 4.2 3.3 - 5.1 mmol/L Final CO2 02/13/2019 33 21 - 35 mmol/L Final BUN 02/13/2019 12 6 - 19 mg/dL Final CREATININE 02/13/2019 1.00 0.5 - 1.5 mg/dL Final GLUCOSE 02/13/2019 106* 70 - 99 mg/dL Final CALCIUM 02/13/2019 8.9 8.4 - 10.3 mg/dL Final EGFR 02/13/2019 62 >59 mL/min/1.73m2 Final If patient is black, multiply result by 1.159. Estimated glomerular filtration rate calculated using the CKD-EPI equation. ANION GAP 02/13/2019 12 10 - 20 mmol/L Final WBC 02/13/2019 8.47 3.40 - 11.20 K/uL Final RBC 02/13/2019 3.99 3.80 - 4.80 M/uL Final HGB 02/13/2019 11.5* 12.0 - 15.0 g/dL Final HCT 02/13/2019 35.0* 36.0 - 46.0 % Final PLT 02/13/2019 159 130 - 400 K/uL Final MCV 02/13/2019 87.7 79.0 - 98.0 fL Final MCH 02/13/2019 28.8 27.0 - 34.8 pg Final MCHC 02/13/2019 32.9 31.5 - 36.0 g/dL Final RDW 02/13/2019 12.7 10.8 - 14.6 % Final MPV 02/13/2019 10.2 9.4 - 12.4 fl Final NRBC 02/13/2019 0.00 0.00 /100 WBCs Final ABSOLUTE NRBC 02/13/2019 0.00 0.00 K/uL Final WBC 02/14/2019 9.46 3.40 - 11.20 K/uL Final RBC 02/14/2019 3.97 3.80 - 4.80 M/uL Final HGB 02/14/2019 11.6* 12.0 - 15.0 g/dL Final HCT 02/14/2019 35.1* 36.0 - 46.0 % Final PLT 02/14/2019 189 130 - 400 K/uL Final MCV 02/14/2019 88.4 79.0 - 98.0 fL Final MCH 02/14/2019 29.2 27.0 - 34.8 pg Final MCHC 02/14/2019 33.0 31.5 - 36.0 g/dL Final RDW 02/14/2019 12.9 10.8 - 14.6 % Final MPV 02/14/2019 9.6 9.4 - 12.4 fl Final NRBC 02/14/2019 0.00 0.00 /100 WBCs Final ABSOLUTE NRBC 02/14/2019 0.00 0.00 K/uL Final Office Visit on 01/28/2019 Component Date Value Ref Range Status Specimen Source/ Description 01/28/2019 NASAL AND AXILLA NASAL Final SPECIAL REQUESTS 01/28/2019 None Final CULTURE / TEST 01/28/2019 No MRSA or MSSA isolated Final REPORT STATUS 01/28/2019 01/30/2019 FINAL Final Hospital Outpatient Visit on 01/23/2019 Component Date Value Ref Range Status Ventricular Rate EKG/MIN 01/23/2019 72 BPM Final Atrial Rate 01/23/2019 72 BPM Final [place] Interval 01/23/2019 172 ms Final QRS Duration 01/23/2019 92 ms Final QT Interval 01/23/2019 392 ms Final QTC Interval 01/23/2019 429 ms Final P [place] 01/23/2019 39 degrees Final R Wave [place] 01/23/2019 41 degrees Final T Wave [place] 01/23/2019 38 degrees Final Hospital Outpatient Visit on 01/15/2019 Component Date Value Ref Range Status HEMOGLOBIN A1C 01/15/2019 5.1 4.3 - 5.8 % Final WBC 01/15/2019 6.16 3.40 - 11.20 K/uL Final RBC 01/15/2019 4.78 3.80 - 4.80 M/uL Final HGB 01/15/2019 13.9 12.0 - 15.0 g/dL Final HCT 01/15/2019 42.4 36.0 - 46.0 % Final PLT 01/15/2019 178 130 - 400 K/uL Final MCV 01/15/2019 88.7 79.0 - 98.0 fL Final MCH 01/15/2019 29.1 27.0 - 34.8 pg Final MCHC 01/15/2019 32.8 31.5 - 36.0 g/dL Final RDW 01/15/2019 13.0 10.8 - 14.6 % Final MPV 01/15/2019 11.2 9.4 - 12.4 fl Final NRBC 01/15/2019 0.00 0.00 /100 WBCs Final ABSOLUTE NRBC 01/15/2019 0.00 0.00 K/uL Final SODIUM 01/15/2019 144 133 - 146 mmol/L Final CHLORIDE 01/15/2019 101 96 - 108 mmol/L Final POTASSIUM 01/15/2019 3.8 3.3 - 5.1 mmol/L Final CO2 01/15/2019 31 21 - 35 mmol/L Final BUN 01/15/2019 16 6 - 19 mg/dL Final CREATININE 01/15/2019 1.00 0.5 - 1.5 mg/dL Final GLUCOSE 01/15/2019 68* 70 - 99 mg/dL Final CALCIUM 01/15/2019 9.5 8.4 - 10.3 mg/dL Final EGFR 01/15/2019 62 >59 mL/min/1.73m2 Final If patient is black, multiply result by 1.159. Estimated glomerular filtration rate calculated using the CKD-EPI equation. ANION GAP 01/15/2019 16 10 - 20 mmol/L Final Osteoarthritis of right sternoclavicular joint 0 03/12/2019 Assessment & Plan (03/26/2019 12:31 PM EDT): Mildly tender to palpation. No worse than before. Greater trochanteric bursitis of left hip 2018 Assessment & Plan (12/25/2018 10:47 AM EST): Acute flare of left trochanteric bursitis will be treated with iliotibial band stretches, contrast baths, and local injection today. Fibromyalgia 09/12/2018 Overview (09/12/2018): Patient reported Assessment & Plan (10/03/2021 5:27 PM EST): Hx of FM and chronic pain Currently on oxycodone for pain control Discussion today about substantial risks of adverse effects I do not manage this condition with chronic opioids . If pt wishes to stay on this medication I would recommend discussing with their Primary Care Provider or we can refer them to a Pain Management Clinic. Pt understands and will consider referral to pain center Thank you. I discussed changing Lexapro to Cymbalta which sometime is better for painccontrol than Lexapro but pt declined Encouraged regular exercise Assessment & Plan (06/06/2021 11:34 AM EDT): Patient has active fibromyalgia which is stable though painful. Also diffuse axial and appendicular osteoarthritis is stable though painful. Reviewed medication list and discussed risks and benefits of current medications which were left unchanged. Laboratory work was reviewed. More than 50% of this 33-minute visit was spent in [id number] conversation with the patient going over the natural history and treatment of fibromyalgia and osteoarthritis, risks and benefits of her medication and coordination of my care with out of her primary care physician. No visits with results within 3 Month(s) from this visit. Latest known visit with results is: Hospital Outpatient Visit on 12/02/2019 Component Date Value Ref Range Status SODIUM 12/02/2019 141 133 - 146 mmol/L Final POTASSIUM 12/02/2019 4.2 3.3 - 5.1 mmol/L Final CHLORIDE 12/02/2019 98 96 - 108 mmol/L Final CO2 12/02/2019 30 21 - 35 mmol/L Final BUN 12/02/2019 16 6 - 19 mg/dL Final CREATININE 12/02/2019 1.10 0.5 - 1.5 mg/dL Final GLUCOSE 12/02/2019 101* 70 - 99 mg/dL Final ALBUMIN 12/02/2019 4.6 3.9 - 4.8 g/dL Final TOTAL PROTEIN 12/02/2019 7.4 6.5 - 8.0 g/dL Final CALCIUM 12/02/2019 9.8 8.4 - 10.3 mg/dL Final ALKALINE PHOSPHATASE 12/02/2019 75 39 - 117 U/L Final TOTAL BILIRUBIN 12/02/2019 0.3 0.0 - 1.2 mg/dL Final AST 12/02/2019 28 0 - 37 U/L Final ALT 12/02/2019 19 0 - 40 U/L Final GLOBULIN 12/02/2019 2.8 1 - 4.8 g/dL Final EGFR 12/02/2019 55* >59 mL/min/1.73m2 Final If patient is black, multiply result by 1.159. Estimated glomerular filtration rate calculated using the CKD-EPI equation. ANION GAP 12/02/2019 17 10 - 20 mmol/L Final TSH 12/02/2019 1.42 0.27 - 4.20 uIU/mL Final WBC 12/02/2019 6.50 3.40 - 11.20 K/uL Final RBC 12/02/2019 4.73 3.80 - 4.80 M/uL Final HGB 12/02/2019 13.6 12.0 - 15.0 g/dL Final HCT 12/02/2019 40.5 36.0 - 46.0 % Final PLT 12/02/2019 195 130 - 400 K/uL Final MCV 12/02/2019 85.6 79.0 - 98.0 fL Final MCH 12/02/2019 28.8 27.0 - 34.8 pg Final MCHC 12/02/2019 33.6 31.5 - 36.0 g/dL Final RDW 12/02/2019 13.0 10.8 - 14.6 % Final MPV 12/02/2019 11.3 9.4 - 12.4 fl Final NRBC 12/02/2019 0.00 0.00 /100 WBCs Final ABSOLUTE NRBC 12/02/2019 0.00 0.00 K/uL Final DIFF METHOD 12/02/2019 Auto Final NEUTS 12/02/2019 62.0 45.30 - 77.70 % Final LYMPHS 12/02/2019 25.1 12.30 - 39.70 % Final MONOS 12/02/2019 7.5 4.10 - 12.80 % Final EOS 12/02/2019 3.7 0 - 7.2 % Final BASOS 12/02/2019 1.2 0 - 2.80 % Final Granulocytes, immature (%) 12/02/2019 0.5 0.0 - 0.9 % Final ABSOLUTE NEUTS 12/02/2019 4.03 1.40 - 7.70 K/uL Final ABSOLUTE LYMPHS 12/02/2019 1.63 0.60 - 3.20 K/uL Final ABSOLUTE MONOS 12/02/2019 0.49 0.11 - 0.59 K/uL Final ABSOLUTE EOS 12/02/2019 0.24 0.01 - 0.50 K/uL Final ABSOLUTE BASOS 12/02/2019 0.08 0.00 - 0.08 K/uL Final Granulocytes, immature 12/02/2019 0.03 0.00 - 0.05 K/uL Final Assessment & Plan (02/28/2021 11:08 AM EDT): Doing reasonably well on combination of meloxicam and Lyrica. Risks and benefits of continued use of meloxicam and Lyrica discussed and previous lab work was reviewed. I also reviewed the results of her evaluation on her use of narcotic analgesics. There were no signs or symptoms of diversion or polypharmacy. She may continue on same prescription unchanged. No visits with results within 3 Month(s) from this visit. Latest known visit with results is: Hospital Outpatient Visit on 12/02/2019 Component Date Value Ref Range Status SODIUM 12/02/2019 141 133 - 146 mmol/L Final POTASSIUM 12/02/2019 4.2 3.3 - 5.1 mmol/L Final CHLORIDE 12/02/2019 98 96 - 108 mmol/L Final CO2 12/02/2019 30 21 - 35 mmol/L Final BUN 12/02/2019 16 6 - 19 mg/dL Final CREATININE 12/02/2019 1.10 0.5 - 1.5 mg/dL Final GLUCOSE 12/02/2019 101* 70 - 99 mg/dL Final ALBUMIN 12/02/2019 4.6 3.9 - 4.8 g/dL Final TOTAL PROTEIN 12/02/2019 7.4 6.5 - 8.0 g/dL Final CALCIUM 12/02/2019 9.8 8.4 - 10.3 mg/dL Final ALKALINE PHOSPHATASE 12/02/2019 75 39 - 117 U/L Final TOTAL BILIRUBIN 12/02/2019 0.3 0.0 - 1.2 mg/dL Final AST 12/02/2019 28 0 - 37 U/L Final ALT 12/02/2019 19 0 - 40 U/L Final GLOBULIN 12/02/2019 2.8 1 - 4.8 g/dL Final EGFR 12/02/2019 55* >59 mL/min/1.73m2 Final If patient is black, multiply result by 1.159. Estimated glomerular filtration rate calculated using the CKD-EPI equation. ANION GAP 12/02/2019 17 10 - 20 mmol/L Final TSH 12/02/2019 1.42 0.27 - 4.20 uIU/mL Final WBC 12/02/2019 6.50 3.40 - 11.20 K/uL Final RBC 12/02/2019 4.73 3.80 - 4.80 M/uL Final HGB 12/02/2019 13.6 12.0 - 15.0 g/dL Final HCT 12/02/2019 40.5 36.0 - 46.0 % Final PLT 12/02/2019 195 130 - 400 K/uL Final MCV 12/02/2019 85.6 79.0 - 98.0 fL Final MCH 12/02/2019 28.8 27.0 - 34.8 pg Final MCHC 12/02/2019 33.6 31.5 - 36.0 g/dL Final RDW 12/02/2019 13.0 10.8 - 14.6 % Final MPV 12/02/2019 11.3 9.4 - 12.4 fl Final NRBC 12/02/2019 0.00 0.00 /100 WBCs Final ABSOLUTE NRBC 12/02/2019 0.00 0.00 K/uL Final DIFF METHOD 12/02/2019 Auto Final NEUTS 12/02/2019 62.0 45.30 - 77.70 % Final LYMPHS 12/02/2019 25.1 12.30 - 39.70 % Final MONOS 12/02/2019 7.5 4.10 - 12.80 % Final EOS 12/02/2019 3.7 0 - 7.2 % Final BASOS 12/02/2019 1.2 0 - 2.80 % Final Granulocytes, immature (%) 12/02/2019 0.5 0.0 - 0.9 % Final ABSOLUTE NEUTS 12/02/2019 4.03 1.40 - 7.70 K/uL Final ABSOLUTE LYMPHS 12/02/2019 1.63 0.60 - 3.20 K/uL Final ABSOLUTE MONOS 12/02/2019 0.49 0.11 - 0.59 K/uL Final ABSOLUTE EOS 12/02/2019 0.24 0.01 - 0.50 K/uL Final ABSOLUTE BASOS 12/02/2019 0.08 0.00 - 0.08 K/uL Final Granulocytes, immature 12/02/2019 0.03 0.00 - 0.05 K/uL Final Assessment & Plan (11/29/2020 12:06 PM EST): Continues to have fatigue, poor sleep and generalized stiffness. Low inflammatory diet, meloxicam, Wellbutrin, pregabalin, and vitamin D as well as stretching core strengthening and general cardiovascular exercise are all recommended for this. Laboratory work was reviewed. No visits with results within 3 Month(s) from this visit. Latest known visit with results is: Hospital Outpatient Visit on 12/02/2019 Component Date Value Ref Range Status SODIUM 12/02/2019 141 133 - 146 mmol/L Final POTASSIUM 12/02/2019 4.2 3.3 - 5.1 mmol/L Final CHLORIDE 12/02/2019 98 96 - 108 mmol/L Final CO2 12/02/2019 30 21 - 35 mmol/L Final BUN 12/02/2019 16 6 - 19 mg/dL Final CREATININE 12/02/2019 1.10 0.5 - 1.5 mg/dL Final GLUCOSE 12/02/2019 101* 70 - 99 mg/dL Final ALBUMIN 12/02/2019 4.6 3.9 - 4.8 g/dL Final TOTAL PROTEIN 12/02/2019 7.4 6.5 - 8.0 g/dL Final CALCIUM 12/02/2019 9.8 8.4 - 10.3 mg/dL Final ALKALINE PHOSPHATASE 12/02/2019 75 39 - 117 U/L Final TOTAL BILIRUBIN 12/02/2019 0.3 0.0 - 1.2 mg/dL Final AST 12/02/2019 28 0 - 37 U/L Final ALT 12/02/2019 19 0 - 40 U/L Final GLOBULIN 12/02/2019 2.8 1 - 4.8 g/dL Final EGFR 12/02/2019 55* >59 mL/min/1.73m2 Final If patient is black, multiply result by 1.159. Estimated glomerular filtration rate calculated using the CKD-EPI equation. ANION GAP 12/02/2019 17 10 - 20 mmol/L Final TSH 12/02/2019 1.42 0.27 - 4.20 uIU/mL Final WBC 12/02/2019 6.50 3.40 - 11.20 K/uL Final RBC 12/02/2019 4.73 3.80 - 4.80 M/uL Final HGB 12/02/2019 13.6 12.0 - 15.0 g/dL Final HCT 12/02/2019 40.5 36.0 - 46.0 % Final PLT 12/02/2019 195 130 - 400 K/uL Final MCV 12/02/2019 85.6 79.0 - 98.0 fL Final MCH 12/02/2019 28.8 27.0 - 34.8 pg Final MCHC 12/02/2019 33.6 31.5 - 36.0 g/dL Final RDW 12/02/2019 13.0 10.8 - 14.6 % Final MPV 12/02/2019 11.3 9.4 - 12.4 fl Final NRBC 12/02/2019 0.00 0.00 /100 WBCs Final ABSOLUTE NRBC 12/02/2019 0.00 0.00 K/uL Final DIFF METHOD 12/02/2019 Auto Final NEUTS 12/02/2019 62.0 45.30 - 77.70 % Final LYMPHS 12/02/2019 25.1 12.30 - 39.70 % Final MONOS 12/02/2019 7.5 4.10 - 12.80 % Final EOS 12/02/2019 3.7 0 - 7.2 % Final BASOS 12/02/2019 1.2 0 - 2.80 % Final Granulocytes, immature (%) 12/02/2019 0.5 0.0 - 0.9 % Final ABSOLUTE NEUTS 12/02/2019 4.03 1.40 - 7.70 K/uL Final ABSOLUTE LYMPHS 12/02/2019 1.63 0.60 - 3.20 K/uL Final ABSOLUTE MONOS 12/02/2019 0.49 0.11 - 0.59 K/uL Final ABSOLUTE EOS 12/02/2019 0.24 0.01 - 0.50 K/uL Final ABSOLUTE BASOS 12/02/2019 0.08 0.00 - 0.08 K/uL Final Granulocytes, immature 12/02/2019 0.03 0.00 - 0.05 K/uL Final Assessment & Plan (12/02/2019 11:06 AM EST): Active but stable in the continued source of pain. Continue Wellbutrin. Continue Lyrica. Continue vitamin D3. Obtain lab work today. Previous lab work was reviewed. Discussed addition of low inflammatory Mediterranean style diet and stress reduction techniques. No visits with results within 3 Month(s) from this visit. Latest known visit with results is: Hospital Outpatient Visit on 04/18/2019 Component Date Value Ref Range Status C REACTIVE PROTEIN 04/18/2019 0.6 0.0 - 4.0 mg/L Final SODIUM 04/18/2019 141 133 - 146 mmol/L Final POTASSIUM 04/18/2019 3.6 3.3 - 5.1 mmol/L Final CHLORIDE 04/18/2019 102 96 - 108 mmol/L Final CO2 04/18/2019 28 21 - 35 mmol/L Final BUN 04/18/2019 19 6 - 19 mg/dL Final CREATININE 04/18/2019 1.00 0.5 - 1.5 mg/dL Final GLUCOSE 04/18/2019 101* 70 - 99 mg/dL Final ALBUMIN 04/18/2019 4.3 3.9 - 4.8 g/dL Final TOTAL PROTEIN 04/18/2019 7.2 6.5 - 8.0 g/dL Final CALCIUM 04/18/2019 9.4 8.4 - 10.3 mg/dL Final ALKALINE PHOSPHATASE 04/18/2019 91 39 - 117 U/L Final TOTAL BILIRUBIN 04/18/2019 0.2 0.0 - 1.2 mg/dL Final AST 04/18/2019 24 0 - 37 U/L Final ALT 04/18/2019 15 0 - 40 U/L Final GLOBULIN 04/18/2019 2.9 1 - 4.8 g/dL Final EGFR 04/18/2019 62 >59 mL/min/1.73m2 Final If patient is black, multiply result by 1.159. Estimated glomerular filtration rate calculated using the CKD-EPI equation. ANION GAP 04/18/2019 15 10 - 20 mmol/L Final WBC 04/18/2019 7.23 3.40 - 11.20 K/uL Final RBC 04/18/2019 4.54 3.80 - 4.80 M/uL Final HGB 04/18/2019 12.7 12.0 - 15.0 g/dL Final HCT 04/18/2019 38.4 36.0 - 46.0 % Final PLT 04/18/2019 191 130 - 400 K/uL Final MCV 04/18/2019 84.6 79.0 - 98.0 fL Final MCH 04/18/2019 28.0 27.0 - 34.8 pg Final MCHC 04/18/2019 33.1 31.5 - 36.0 g/dL Final RDW 04/18/2019 13.1 10.8 - 14.6 % Final MPV 04/18/2019 11.5 9.4 - 12.4 fl Final NRBC 04/18/2019 0.00 0.00 /100 WBCs Final ABSOLUTE NRBC 04/18/2019 0.00 0.00 K/uL Final Assessment & Plan (08/06/2019 9:22 AM EDT): Multiple tender points, chronic fatigue, poor but improved sleep and absence of inflammatory arthropathy and improvement on Lyrica all suggest active fibromyalgia. She will continue on Lyrica and meloxicam and vitamin D and use as needed narcotic analgesics. She will continue on Wellbutrin as per her primary care physician. Her laboratory work was reviewed. No visits with results within 3 Month(s) from this visit. Latest known visit with results is: Hospital Outpatient Visit on 04/18/2019 Component Date Value Ref Range Status C REACTIVE PROTEIN 04/18/2019 0.6 0.0 - 4.0 mg/L Final SODIUM 04/18/2019 141 133 - 146 mmol/L Final POTASSIUM 04/18/2019 3.6 3.3 - 5.1 mmol/L Final CHLORIDE 04/18/2019 102 96 - 108 mmol/L Final CO2 04/18/2019 28 21 - 35 mmol/L Final BUN 04/18/2019 19 6 - 19 mg/dL Final CREATININE 04/18/2019 1.00 0.5 - 1.5 mg/dL Final GLUCOSE 04/18/2019 101* 70 - 99 mg/dL Final ALBUMIN 04/18/2019 4.3 3.9 - 4.8 g/dL Final TOTAL PROTEIN 04/18/2019 7.2 6.5 - 8.0 g/dL Final CALCIUM 04/18/2019 9.4 8.4 - 10.3 mg/dL Final ALKALINE PHOSPHATASE 04/18/2019 91 39 - 117 U/L Final TOTAL BILIRUBIN 04/18/2019 0.2 0.0 - 1.2 mg/dL Final AST 04/18/2019 24 0 - 37 U/L Final ALT 04/18/2019 15 0 - 40 U/L Final GLOBULIN 04/18/2019 2.9 1 - 4.8 g/dL Final EGFR 04/18/2019 62 >59 mL/min/1.73m2 Final If patient is black, multiply result by 1.159. Estimated glomerular filtration rate calculated using the CKD-EPI equation. ANION GAP 04/18/2019 15 10 - 20 mmol/L Final WBC 04/18/2019 7.23 3.40 - 11.20 K/uL Final RBC 04/18/2019 4.54 3.80 - 4.80 M/uL Final HGB 04/18/2019 12.7 12.0 - 15.0 g/dL Final HCT 04/18/2019 38.4 36.0 - 46.0 % Final PLT 04/18/2019 191 130 - 400 K/uL Final MCV 04/18/2019 84.6 79.0 - 98.0 fL Final MCH 04/18/2019 28.0 27.0 - 34.8 pg Final MCHC 04/18/2019 33.1 31.5 - 36.0 g/dL Final RDW 04/18/2019 13.1 10.8 - 14.6 % Final MPV 04/18/2019 11.5 9.4 - 12.4 fl Final NRBC 04/18/2019 0.00 0.00 /100 WBCs Final ABSOLUTE NRBC 04/18/2019 0.00 0.00 K/uL Final Assessment & Plan (03/26/2019 12:32 PM EDT): Multiple tender points on exam, generalized flare. She needs a lot of rest, continuance of meloxicam at 15 mg daily, Lyrica and 150 mg at bedtime, and 10 mg of oxycodone 3 times daily as needed. Risks and benefits of continued use of oxycodone were discussed. Assessment & Plan (03/12/2019 11:15 AM EDT): Active but stable with multiple tender points and continued fatigue and stiffness. She is better than she has been in a long time. The source of severe pain is been removed and she has lost quite a bit of weight and is on a relatively low inflammatory diet. She will continue on Lyrica. Recently refilled. Assessment & Plan (09/23/2018 11:13 AM EST): We discussed her fibromyalgia. She will remain on current medication. Lyrica has been helpful. Her thyroid function is normal. She will stay on vitamin D. She will stay on meloxicam. I refilled her oxycodone today. Osteoarthritis of right knee 08/12/2018 Assessment & Plan (02/28/2021 11:07 AM EDT): Aspirate and inject today. Assessment & Plan (07/14/2020 11:12 AM EDT): Acute flare of tricompartmental osteoarthritis will be treated with an intra-articular cortisone injection today. Assessment & Plan (12/02/2019 11:06 AM EST): Stable tricompartmental osteoarthritis. Weight management, quadricep strengthening, well fitting supportive shoes with good shock absorption and increase in oxycodone from 3 times daily to every 6 hours was made today. Assessment & Plan (08/06/2019 9:23 AM EDT): Tricompartmental osteoarthritis to be treated with continued quadricep strengthening, external bracing if needed and meloxicam. Cortisone injections for acute flares and Visco supplementation if needed. Assessment & Plan (03/12/2019 11:15 AM EDT): Mild medial compartment disease which is stable. No meniscal disruption. Continued efforts at wearing well supported shoes as well as maintaining her low weight and quadricep strengthening. Assessment & Plan (08/12/2018 12:29 PM EDT): New onset of right knee pain. And differential diagnosis would be flare of osteoarthritis, plical syndrome, meniscal tear, and less likely osteonecrosis. X-ray will be done today. Aspiration and injection will be done today. Follow-up by phone call next week. If no improvement, MRI scan right knee. Chronic obstructive pulmonary disease 07/03/2018 Complex regional pain syndro me type 2 of left lower extremity 01/16/2018 Overview (09/12/2018): Patient reported Assessment & Plan (01/16/2018 12:01 PM EST): She is going to see another physician in [place] who specializes and complex regional pain syndromes. I've asked her to send me a consultation. Rotator cuff impingement syndrome, left 10/05/20 15 Overview (10/19/2015): Disorder of shoulder Assessment & Plan (10/03/2021 5:23 PM EST): Hx and exam consistent with RTC impingement Injection today-please see note Encouraged HEP PT and or MRI if remains symptomatic Resolved Problems Problem Noted Date Diagnosed Date Resolved Date Aftercare following left kne e joint replacement surgery 02/12/2019 06/28/2023 Genu valgum, acquired, left 09/12/2018 06/28/2023 Complex tear of lateral meni scus of left knee as current injury 10/29/2017 06/28/2023 Osteoarthritis of left knee 09/27/2017 02/15/2019 Assessment & Plan (12/25/2018 10:47 AM EST): Medications to be unchanged. She is preparing for surgery left total knee replacement next month. Assessment & Plan (10/30/2018 10:48 AM EST): Aspiration and local injection today. Continuance of current medication. Assessment & Plan (09/23/2018 11:14 AM EST): Moderately severe tricompartmental osteoarthritis which is flaring right now. Eventually she will have total knee replacement but for today we will aspirate and inject the knee. Assessment & Plan (07/03/2018 12:31 PM EDT): Patient is having a flare up of left knee tricompartmental osteoarthritis and she'll be treated with aspiration and local injection today. Medications will remain unchanged. Assessment & Plan (05/22/2018 1:24 PM EDT): She is doing much better than she has been in awhile due to possibly initiation of supplements with CBD oil and tumeric. She will continue on this as well as modifying her weight and wearing well fitting shoes and exercises to strengthen quads Assessment & Plan (02/25/2018 12:18 PM EDT): Patient is having a painful flare of her left knee osteoarthritis is be treated today with aspiration and corticosteroid injection. Assessment & Plan (12/05/2017 11:29 AM EST): Worsening pain behind on the outer portion of the left knee. I will speak to her orthopedic surgeon at [facility] to see what the issues might be regarding total knee arthroplasty because aspiration and local injection therapy of which are significant but short-term relief only. I am also concerned about the long-term risks to this patient of continuous and repetitive cortisone injection therapy. She will stay on the same dose of narcotic analgesics and 15 mg of meloxicam a day. Assessment & Plan (10/29/2017 4:20 PM EST): Pain relieving injection into the left knee today. Continue his current pain medication. Quadriceps strengthening, weight reduction, and well fitting shoes were discussed today. Assessment & Plan (09/27/2017 11:47 AM EST): She is doing better with the TENS unit. She continues on her narcotic analgesics as needed. No other new arthralgias. Encounters Date Type Department Care Team Description 09/23/2025 2:55 PM EST - 09/23/2025 11:59 PM EST Hospital Encounter [address] [address] Mars Berman PA-C Arrived Discharge Disposition: Home or Self Care 09/23/2025 2:47 PM EST - 09/23/2025 2:54 PM EST Hospital Encounter [address] [address] Mars Berman PA-C Arrived Discharge Disposition: Home or Self Care 09/23/2025 2:40 PM EST Office Visit [facility] [address] [place] [phone] Ike Gomez DO Bombardier, Mark, PA-C Rotator cuff arthropathy of left shoulder (Primary Dx); Shoulder pain; Primary osteoarthritis of left shoulder 09/23/2025 Ancillary Orders [address] [address] Mars Berman PA-C Chronic right shoulder pain (Primary Dx) 09/23/2025 Ancillary Orders [facility] [address] [place] [phone] Mars Berman PA-C Shoulder pain (Primary Dx) 08/28/2025 1:00 PM EDT Office Visit [facility] [address] [place] [phone] Unknown, Unknown, Peter Riojas MD Gastroesophageal reflux disease without esophagitis (Primary Dx); Achalasia from Last 3 Months Social History Tobacco Use Types Packs/Day Years [...] Orientation Straight 06/22/2023 7: 36 AM EDT Last Filed Vital Signs Vital Sign Reading Time Taken Comments Blood Pressure 126/79 08/28/2025 1:12 PM EDT Pulse 82 08/28/2025 1:12 PM EDT Temperature 35.8 C (96.5 F) 12/05/2023 11:13 AM EST Respiratory Rate 12/05/2023 11:28 AM EST Oxygen Saturation 98% 12/05/2023 11:28 AM EST Inhaled Oxygen Concentration - - Weight 85.3 kg (188 lb) 08/28/2025 1:12 PM EDT Height 160 cm (5' 3 ) 08/28/2025 1:12 PM EDT Body Mass Index 33.3 08/28/2025 1:12 PM EDT Plan of Treatment Health Maintenance Due Date Last Done Comments Adult Td,Tdap Booster 1959 LIPID PANEL 1959 DEPRESSION SCREENING 1971 HEPATITIS C SCREENING 1977 HIV ONE-TIME SCREENING (18-65 YEARS) 1977 MAMMOGRAM 1999 COLOGUARD 2004 COLONOSCOPY 2004 COLORECTAL CANCER SCREENING 2004 FIT TEST 2004 FOBT 2004 SIGMOIDOSCOPY 2004 VIRTUAL COLONOSCOPY 2004 POTASSIUM LEVEL 12/02/2020 12/02/2019, 06/0 05/2019, 02/13/2019, Additional history exists TSH LEVEL 12/02/2020 12/02/2019 SCREENING FOR DIABETES 12/02/2022 12/02/2019 OSTEOPOROSIS SCREENING INITIAL (ONE-TIME) 2024 COVID-19 VACCINE ( season) 2025 07/25/2025, 07/14/2024, 07/14/2024, Additional history exists SMOKING Hx and SMOKELESS TOBACCO SCREENING 09/23/2026 09/23/2025 ZOSTER VACCINES Completed 11/14/2020, 09/01/2020 RSV VACCINE Completed 09/17/2023 INFLUENZA VACCINE Completed 07/25/2025, , 07/14/2024, Additional history exists PNEUMOCOCCAL VACCINES (50+ years) Completed 07/25/2025, 04/25/2025, 03/14/2025, Additional history exists HEPATITIS A VACCINES Aged Out No long er eligible based on patient's age to complete this topic HIB VACCINES Aged Out No longer eligi ble based on patient's age to complete this topic IPV VACCINES Aged Out No longer eligi ble based on patient's age to complete this topic MENINGOCOCCAL VACCINES (ACWY) Aged Out No longer eligible based on patient's age to complete this topic MENINGOCOCCAL VACCINES (B) Aged Out N o longer eligible based on patient's age to complete this topic Medical Devices Implanted Type Area Follow Up Manager Device Identifier Shelf Expiration Date Model / Serial / Lot Knee Insert 10xto 71 75mm Implant Bring Tex 05 - [id number] Implanted:Qty: 1 on 02/12/2019 by Peter Holley MD at [facility] NODATA Left: Knee [employer] 12/30/2023 [id number] / / [id number] Peg 34x8.5mm Button Patella Knee Vanguard Uhmwpe 3 Series A Standard - [id number] Implanted:Qty: 1 on 02/12/2019 by Peter Holley MD at [facility] STANDARD Left: Knee [employer] 10/23/2023 [id number] / / [id number] Right Breast Marker Cement Bone Biomet Standard R 1x40 Us - [id number] Implanted:Qty: 1 on 02/12/2019 by Peter Holley MD at [facility] Left: Knee DEE DEE / DIV [employer] 03/11/2023 [id number] / / [id number] Box Component 67.5mm Femoral Knee [employer] Interlok [place] Posterior Stabilized Open Cemented Left - [id number] Implanted:Qty: 1 on 02/12/2019 by Peter Holley MD at [facility] Left: Knee [employer] 08/21/2028 [id number] / / [id number] Knee Tray 71mm Plate Bone Primary Vanguard [place] I Beam Revision Interlock Cemented - [id number] Implanted:Qty: 1 on 02/12/2019 by Peter Holley MD at [facility] Left: Knee [employer] 12/05/2028 [id number] / / [id number] Procedures Procedure Name Priority Date/Time Associated Diagnosis Comments XR SHOULDER 2 VIEWS (LEFT) Routine 09/23/2025 3:09 PM EST Shoulder pain XR SHOULDER 2 VIEWS (RIGHT) Routine 09/23/2025 3:09 PM EST Chronic right shoulder pain TSH WITH REFLEX Routine 12/02/2019 11:11 AM EST Osteoarthritis of left knee COMPREHENSIVE METABOLIC PANEL (CMP) Routine 12/02/2019 11:11 AM EST Osteoarthritis of left knee from Last 3 Months or Most Recently Relevant to Health Maintenance Results * XR SHOULDER 2 VIEWS (LEFT) (09/23/2025 3:09 PM EST) Narrative SYSTEMGENERATED, DOCUMENTATION - 09/23/2025 3:09 PM EST This image report has been auto-finalized and has not been read by a Radiologist. Interpretation has been included in the provider encounter note for this date of service. us Mars Bombardier PA-C IMG XR UPPER EXTREMITY Mita l Result * XR SHOULDER 2 VIEWS (RIGHT) (09/23/2025 3:09 PM EST) Narrative SYSTEMGENERATED, DOCUMENTATION - 09/23/2025 3:09 PM EST This image report has been auto-finalized and has not been read by a Radiologist. Interpretation has been included in the provider encounter note for this date of service. us Mars Bombardier PA-C IMG XR UPPER EXTREMITY Mita l Result * (ABNORMAL) Comprehensive metabolic panel (12/02/2019 11:11 AM EST) SODIUM 141 133 - 146 mmol/L [facility] POTASSIUM 4.2 3.3 - 5.1 mmol/L [facility] CHLORIDE 98 96 - 108 mmol/L [facility] CO2 30 21 - 35 mmol/L [facility] BUN 16 6 - 19 mg/dL [facility] CREATININE 1.10 0.5 - 1.5 mg/dL [facility] GLUCOSE 101(H) 70 - 99 mg/dL [facility] ALBUMIN 4.6 3.9 - 4.8 g/dL [facility] TOTAL PROTEIN 7.4 6.5 - 8.0 g/dL [facility] CALCIUM 9.8 8.4 - 10.3 mg/dL [facility] ALKALINE PHOSPHATASE 75 39 - 117 U/L [facility] TOTAL BILIRUBIN 0.3 0.0 - 1.2 mg/dL [facility] AST 28 0 - 37 U/L [facility] ALT 19 0 - 40 U/L [facility] GLOBULIN 2.8 1 - 4.8 g/dL [facility] EGFR 55(L) >59 mL/min/1.7 3m2 [facility] Comment:If patient is black, multiply result by 1.159. Estimated glomerular filtration rate calculated using the CKD-EPI equation. ANION GAP 17 10 - 20 mmol/L [facility] Blood 12/02/2019 11:1 1 AM EST 12/02/2019 11:13 AM EST us Henry Velez MD LAB BLOOD BKR ORDERABLES F inal Result Performing Organization Address City/[facility] Co de Phone Number [address] [address] * TSH with reflex (12/02/2019 11:11 AM EST) TSH 1.42 0.27 - 4.20 uIU/mL [facility] Blood 12/02/2019 11:1 1 AM EST 12/02/2019 11:13 AM EST us Henry Velez MD LAB BLOOD BKR ORDERABLES F inal Result Performing Organization Address [facility] de Phone Number [address] [address] from Last 3 Months or Most Recently Relevant to Health Maintenance Insurance MEDICARE PART A & B [facility] MEDICARE PART A & B [employer] MEDICARE PART A & B [place] [facility] [place] [facility] [place] & B [facility] MEDIC[facility] PART A & B [facility] & B [facility] MEDICARE PART A & B Member Subscriber Plan / Payer (Ef fective 2005-Present) Name:Sharon Garza Member ID:[id number] Relation to Subscriber:Self Name:Sharon Garza Subscriber ID:[id number] Payer ID:[id number] Group ID:Not on file Type:Medicare Address: [facility] shoutr [facility] [address] [facility] [place] [address] [facility] Advance Directives For more information, please contact: [phone] (9AM - 5PM [place]/[facility], Sunday-Sunday) Documents on File Type Date Recorded Patient Pathology Laboratory Director Expl anation Durable Power of Local City Driver 02/18/2019 1:34 PM * Full Code (Presumed) (Latest Code Status on File) Date Activated Date Inactivated Comments 02/12/2019 1:04 PM 02/15/2019 3:11 PM * Full Code (Presumed) Date Activated Date Inactivated Comments 02/12/2019 7:40 AM 02/12/2019 1:04 PM Care Teams Necktie Stitcher Relationship Specialty Start Date End Date Shi Espana NP [address] [place] [phone] [email or web address] children PCP - General Nurse Practitioner 09/29/24 Henry Velez MD [email or web address] Historical LMR Provider 08/30/17 Ike Gomez DO [address] [place] [address] Orthopedics & Sports Medicine, [place] [address] [email or web address] Historical LMR Provider 08/30/17 Aryan Sears MD [address] [place] [phone] Historical LMR Provider 08/30/17 Additional Source Comments The information contained in this document represents components of the legal health record. It is not the complete legal health record.[facility]
--- OUTSIDE RECORDS SUMMARY | 2025-09-25 11:16 | XMS_ITS | Encounter Summary ---
Author Organization [facility] Address [address] [place] [phone] Phone Care Team Providers Care Take Up Operator Name Role Phone Henry Velez MD Unavailable [email or web address] Ike Gomez DO Unavailable Aryan Sears MD Unavailable Amy SawyerC Unavailable [phone] Lorri Haynes MD Unavailable [phone] Aryan Sears MD Primary Care Provider Shi Espana NP Primary Care Provider [phone] Shi Espana NP Primary Care Provider [phone] Encounter Details Date Type Department Care Team (Latest Contact Info) Description 04/18/2019 Transcribe Orders [facility] Phleb Zenaida [address] [facility] 2nd Floor [place], [place] [phone] Amara Butt CNP [address] [place], [place] [phone] Abdominal pain, right lower quadrant (Primary Dx); Change in bowel habits Social History Tobacco Use Types Packs/Day Years [...] documented as of this encounter Results * C-Reactive Protein (04/18/2019 4:00 PM EDT) C REACTIVE PROTEIN 0.6 0.0 - 4.0 mg/L [facility] Blood 04/18/2019 4:00 PM EDT 04/18/2019 4:03 PM EDT us Amara Butt DATA ANALYST REPORT WRITER LAB BLOOD BKR ORDERABLES F inal Result Performing Organization Address City/State/[facility] Co de Phone Number [address] [address] * (ABNORMAL) Comprehensive metabolic panel (04/18/2019 4:00 PM EDT) Pathologist [facility] SODIUM 141 133 - 146 mmol/L [facility] POTASSIUM 3.6 3.3 - 5.1 mmol/L [facility] CHLORIDE 102 96 - 108 mmol/L [facility] CO2 28 21 - 35 mmol/L [facility] BUN 19 6 - 19 mg/dL [facility] CREATININE 1.00 0.5 - 1.5 mg/dL [facility] GLUCOSE 101(H) 70 - 99 mg/dL [facility] ALBUMIN 4.3 3.9 - 4.8 g/dL [facility] TOTAL PROTEIN 7.2 6.5 - 8.0 g/dL [facility] CALCIUM 9.4 8.4 - 10.3 mg/dL [facility] ALKALINE PHOSPHATASE 91 39 - 117 U/L [facility] TOTAL BILIRUBIN 0.2 0.0 - 1.2 mg/dL [facility] AST 24 0 - 37 U/L [facility] ALT 15 0 - 40 U/L [facility] GLOBULIN 2.9 1 - 4.8 g/dL [facility] EGFR 62 >59 mL/min/1.7 3m2 [facility] Comment:If patient is black, multiply result by 1.159. Estimated glomerular filtration rate calculated using the CKD-EPI equation. ANION GAP 15 10 - 20 mmol/L [facility] Blood 04/18/2019 4:00 PM EDT 04/18/2019 4:03 PM EDT Amara Calhoun Daquan [facility] LAB BLOOD BKR ORDERABLES F inal Result Performing Organization Address City/[facility]/ZIP Co de Phone Number [address] [address] * CBC (04/18/2019 4:00 PM EDT) WBC 7.23 3.40 - 11.20 K/uL [facility] RBC 4.54 3.80 - 4.80 M/uL [facility] HGB 12.7 12.0 - 15.0 g/dL [facility] HCT 38.4 36.0 - 46.0 % [facility] PLT 191 130 - 400 K/uL [facility] MCV 84.6 79.0 - 98.0 fL [facility] MCH 28.0 27.0 - 34.8 pg [facility] MCHC 33.1 31.5 - 36.0 g/dL [facility] RDW 13.1 10.8 - 14.6 % [facility] MPV 11.5 9.4 - 12.4 fl [facility] NRBC 0.00 0.00 /100 WBCs [facility] ABSOLUTE NRBC 0.00 0.00 K/uL [facility] Blood 04/18/2019 4:00 PM EDT 04/18/2019 4:03 PM EDT Amara Butt [facility] LAB BLOOD BKR ORDERABLES F inal Result Performing Organization Address City/[facility]/ZIP Co de Phone Number [address] [address] documented in this encounter Visit Diagnoses Diagnosis Abdominal pain, right lower quadrant- Primary Change in bowel habits Other symptoms involving digestive system documented in this encounter Care Teams Take Up Operator Relationship Specialty Start Date End Date Aryan Sears MD [address] [place] [phone] PCP - General Family Medicine 09/27/17 06/27/23 Shi Espana, ANA [address] [place] [phone] [email or web address] PCP - General Nurse Practitioner 06/28/23 09/28/24 Shi Espana, ANA [address] [place] [phone] [email or web address] PCP - General Nurse Practitioner 09/29/24 Henry Velez MD [email or web address] Historical LMR Provider 08/30/17 Ike Gomez DO [address] [place] [address] Orthopedics Sports [facility], [place], [place] [phone] [email or web address] Historical LMR Provider 08/30/17 Aryan Sears MD [address] [place] [phone] Historical LMR Provider 08/30/17 Amy Sawyer PA-C [address] [place] [address] Orthopedics Sports [facility], [place] [address] [email or web address] Historical LMR Provider 08/30/17 11/19/21 Lorri Haynes MD [address] [place] [address] Orthopedics & Sports Medicine, [facility] [place] [address] [email or web address] Historical LMR Provider 08/30/17 documented as of this encounter Additional Source Comments The information contained in this document represents components of the legal health record. It is not the complete legal health record.[facility]
--- OUTSIDE RECORDS SUMMARY | 2025-09-25 11:16 | XMS_ITS | Data Portability ---
Author Organization [place] - [facility] Address [address] [place] [id number] Assessment Encounter Date Assessment Date Assessment LastModified by Organization Details LastModified Time 12/24/2024 12/24/2024 here for random tox screen and pill count. #80 counted, pills in daily pill boxes and placed in locked safebox PE wnwd asa nad coop approp aox3 vss wnl cn, speech, balance, gait symmetric, motor wnl psy culturally congruent socially appropriate n-cog wnl ncat heent wnl no thyromegaly resp nonlabored rrr abd nondistended ext no c/c/e AP stable cont current care plan await tox report f/u and prn min with complicated diagnosis(es) taking >1/2 time in compensatory complex care, senior counsel commercial, evaluation, education, negotiation, and coordination of treatment plan with pt present All care was consented with risks/benefits and all standard medically indicated history, exam, assessment, plan and education explained with all questions answered, pt expressing understanding and appearing satisfied and stable upon departure with care replacing an Urgent Care/ER visit today melissa Not available 01/06/2025 10:00:04 02/02/2025 02/02/2025 ldct ; ok and gideon is watching the large aortic artery will sched Td and pneumococcal is able to crotchet again O; wnwd PE wnwd asa nad coop approp aox3 vss wnl cn, speech, balance, gait symmetric, motor wnl psy culturally congruent socially appropriate n-cog wnl ncat heent wnl no thyromegaly resp nonlabored rrr abd nondistended ext no c/c/e skin w/out obvious rash or lesion m-skeletal symmetric bony landmarks appropriate ABNL: AP; osteoarthritis; on plaquinel f/u and prn 20min with complicated diagnosis(es) taking >1/2 time in compensatory complex care, senior counsel commercial, evaluation, education, negotiation, and coordination of treatment plan with pt present All care was consented with risks/benefits and all standard medically indicated history, exam, assessment, plan and education explained with all questions answered, pt expressing understanding and appearing satisfied and stable upon departure with care replacing an Urgent Care/ER visit today [email or web address] Not available 02/02/2025 10:47:55 04/14/2025 04/14/2025 in office for urine screen and pill count, #90 oxycodone counted, doing well today aox3 coop approp nad appears to be approaching functional goals melissa Not available 04/18/2025 17:59:41 04/27/2025 04/27/2025 doing well. Today's visit is conducted utilizing synchronous audio and video communication between providers patient via a HIPAA compliant portal; [employer]. Patient verbally consents to this virtual visit and understands it will be billed to insurance the same as if they are in the office... no changes and tolerating medications nwithout se PE wnwd asa nad coop approp aox3 vss wnl cn, speech, balance, gait symmetric, motor wnl psy culturally congruent socially appropriate n-cog wnl ncat heent wnl no thyromegaly resp nonlabored rrr abd nondistended ext no c/c/e skin w/out obvious rash or lesion m-skeletal symmetric bony landmarks appropriate AP; see below f/u and prn min with complicated diagnosis(es) taking >1/2 time in compensatory complex care, senior counsel commercial, evaluation, education, negotiation, and coordination of treatment plan with pt present All care was consented with risks/benefits and all standard medically indicated history, exam, assessment, plan and education explained with all questions answered, pt expressing understanding and appearing satisfied and stable upon departure with care replacing an Urgent Care/ER visit today [email or web address] Not available 04/28/2025 11:22:43 09/03/2025 09/03/2025 neuro surge; dr. barkley wants wants to fuse l5 s1. in jul and has ref with gi for surgery to stop reflux left shoulder grinds and pops needs surgery no muscle tone in the left arm and difficult to lift it past 90 degrees r shoulder ; the arthroscopic cleaned up but grinding no changes and tolerating medications nwithout se PE wnwd asa nad coop approp aox3 vss wnl cn, speech, balance, gait symmetric, motor wnl psy culturally congruent socially appropriate n-cog wnl ncat heent wnl no thyromegaly resp nonlabored rrr abd nondistended ext no c/c/e skin w/out obvious rash or lesion m-skeletal lft shoulder is weaker than r and tender to pressure and chronic pain chronic back pain; AP; see below chronic pain; will trial 5 times a day oxycodone she uses extra sparingly; we have never inc in last 20 years and will trial the extra dose she can use if has more to do on a day; just getting out of the car can wear on her when doing errands. gerd; can lift head of bed and less food in evening; scheduling surgery to deal with reflux going for second opinion on back for surgery to improve quality of life; l5s1 ? of fusing at that point in back f/u and prn 30 min with complicated diagnosis(es) taking >1/2 time in compensatory complex care, senior counsel commercial, evaluation, education, negotiation, and coordination of treatment plan with pt present All care was consented with risks/benefits and all standard medically indicated history, exam, assessment, plan and education explained with all questions answered, pt expressing understanding and appearing satisfied and stable upon departure with care replacing an Urgent Care/ER visit today [email or web address] Not available 09/03/2025 15:17:39 Plan of Treatment Reminders Order Date Submit Date Provider Last Modified By Organization Details Last Modified Time Details Appointments None recorded. Lab None recorded. Referral orthopedic surgeon referral 2024 025 ARIK Holley MD, [address] [place] [address], [id number], 5 04:03:29 neurologica l surgeon referral 2024 025 ARIK Luz MD, [address] [place] [address] [place], [address], 04:03:29 Procedures None recorded. Surgeries None recorded. Imaging None recorded. Medication Orders oxycodone 10 mg tablet 2024 025 [id number], [address] [place], [place], [id number], 5 10:27:49 oxycodone 10 mg tablet 2024 025 [facility] #[id number], [address] [place], [place], [id number], 5 12:11:01 oxycodone 10 mg tablet 2024 025 [facility], [address] [place], [address], 5 10:41:49 oxycodone 10 mg tablet 2024 025 [facility] #[id number], [address] [place], [place], [id number], 10:46:03 Patient TargetsNo targets recorded. Patient Instructions Encounter Date Encounter Id Patient Instructions Last Modified By Organization Details Last Modified Time 04/27/2025 [id number] cervical spondylosis: care instructions [email or web address] Not available 04/28/2025 11:23:42 neck arthritis: exercises [email or web address] Not available 04/28/2025 11:23:42 Reason for Referral Orthopedic Surgeon Referral for Pain of left shoulder joint Referring Physician: Shi Espana [facility], Encounter Date: 09/03/2025 Neurological Surgeon Referra l for Low back pain Referring Physician: Shi Espana [facility], Encounter Date: 09/03/2025 Results Created Date Observation Date Name Description Value Unit Range Abnormal Flag Note LastModifiedBy Organization Detail LastModifiedTime 12/24/1912/27/2024 DRUG TOX MONIT ORING ALCOH OL ETHYL , SCRN, U alcohol, ethyl NEGATI VE mg/dL <20 normal Not Available [facility] [address], [place], [address], 12/27/2024 13:26:33 12/24/19 25 12/27/2024 DRUG TOX MONIT ORING ALCOH OL ETHYL , SCRN, U comment See Note 1 Not Available [facility] [place] [facility] [address], [place], [address], 12/27/2024 13:26:33 12/24/19 25 12/27/2024 DRUG TOX MONIT ORING 9 W/CON F, URINE amphetamines NEGATI VE NG/mL <500 normal Not Available [facility] [place] [facility] [address], [place], [address], 12/27/2024 13:26:35 12/24/19 25 12/27/2024 DRUG TOX MONIT ORING 9 W/CON F, URINE barbiturates NEGATI VE NG/mL <300 normal Not Available [facility] [place] [facility] [address], [place], [address], 12/27/2024 13:26:35 12/24/19 25 12/27/2024 DRUG TOX MONIT ORING 9 W/CON F, URINE benzodiazepi woodrow NEGATI VE NG/mL <100 normal Not Available [facility] [place] [facility] [address], [place], [address], 12/27/2024 13:26:35 12/24/19 25 12/27/2024 DRUG TOX MONIT ORING 9 W/CON F, URINE buprenorphin e NEGATI VE NG/mL <5 normal Not Available [facility] [place] [facility] [address], [place], [address], 12/27/2024 13:26:35 12/24/19 25 12/27/2024 DRUG TOX MONIT ORING 9 W/CON F, URINE cocaine metabolite NEGATI VE NG/mL <150 normal Not Available [facility] [address], [place], [address], 12/27/2024 13:26:35 12/24/19 25 12/27/2024 DRUG TOX MONIT ORING 9 W/CON F, URINE heroin metabolite NEGATI VE NG/mL <10 normal Not Available [facility] [place] [facility] [address], [place], [address], 12/27/2024 13:26:35 12/24/19 25 12/27/2024 DRUG TOX MONIT ORING 9 W/CON F, URINE marijuana metabolite 20 POSITI VE NG/mL <20 abnormal Marij uana Metab olite detec tramaine is consi stent with expos ure to Marij uana (THC) and/o r hemp deriv ed produ cts. Some juris dicti ons do not inclu de hemp withi n the defin ition of Marij uana. Not Available [facility] [place] [facility] [address], [place], [address], 12/27/2024 13:26:35 12/24/19 25 12/27/2024 DRUG TOX MONIT ORING 9 W/CON F, URINE marijuana metabolite 146 NG/mL <5 high See Note 2 Not Available [facility] [place] [facility] [address], [place], [address], 12/27/2024 13:26:35 12/24/19 25 12/27/2024 DRUG TOX MONIT ORING 9 W/CON F, URINE MDMA/mda NEGATI VE NG/mL <500 normal Not Available [facility] [place] [facility] [address], [place], [address], 12/27/2024 13:26:35 12/24/19 25 12/27/2024 DRUG TOX MONIT ORING 9 W/CON F, URINE methadone metabolite NEGATI VE NG/mL <100 normal Not Available [facility] [place] [facility] [address], [place], [address], 12/27/2024 13:26:35 12/24/19 25 12/27/2024 DRUG TOX MONIT ORING 9 W/CON F, URINE opiates NEGATI VE CONFIR MED NG/mL <100 normal Not Available [facility] [place] [facility] [address], [place], [address], 12/27/2024 13:26:35 12/24/19 25 12/27/2024 DRUG TOX MONIT ORING 9 W/CON F, URINE codeine NEGATI VE NG/mL <50 normal See Note 2 Not Available [facility] [place] [facility] [address], [place], [address], 12/27/2024 13:26:35 12/24/19 25 12/27/2024 DRUG TOX MONIT ORING 9 W/CON F, URINE hydrocodone NEGATI VE NG/mL <50 normal See Note 2 Not Available [facility] [place] [facility] [address], [place], [address], 12/27/2024 13:26:35 12/24/19 25 12/27/2024 DRUG TOX MONIT ORING 9 W/CON F, URINE hydromorphon e NEGATI VE NG/mL <50 normal See Note 2 Not Available [facility] [place] [facility] [address], [place], [address], 12/27/2024 13:26:35 12/24/19 25 12/27/2024 DRUG TOX MONIT ORING 9 W/CON F, URINE morphine NEGATI VE NG/mL <50 normal See Note 2 Not Available [facility] [place] [facility] [address], [place], [address], 12/27/2024 13:26:35 12/24/19 25 12/27/2024 DRUG TOX MONIT ORING 9 W/CON F, URINE norhydrocodo ne NEGATI VE NG/mL <50 normal See Note 2 Not Available [facility] [place] [facility] [address], [place], [address], 12/27/2024 13:26:35 12/24/19 25 12/27/2024 DRUG TOX MONIT ORING 9 W/CON F, URINE oxycodone POSITI VE NG/mL <100 abnormal Not Available [facility] [place] [facility] [address], [place], [address], 12/27/2024 13:26:35 12/24/19 25 12/27/2024 DRUG TOX MONIT ORING 9 W/CON F, URINE noroxycodone 5898 NG/mL <50 high See Note 2 Not Available [facility] [place] [facility] [address], [place], [address], 12/27/2024 13:26:35 12/24/19 25 12/27/2024 DRUG TOX MONIT ORING 9 W/CON F, URINE oxycodone 1191 NG/mL <50 high See Note 2 Not Available [facility] [place] [facility] [address], [place], [address], 12/27/2024 13:26:35 12/24/19 25 12/27/2024 DRUG TOX MONIT ORING 9 W/CON F, URINE oxymorphone 120 NG/mL <50 high See Note 2 Not Available [facility] [place] [facility] [address], [place], [address], 12/27/2024 13:26:35 12/24/19 25 12/27/2024 DRUG TOX MONIT ORING 9 W/CON F, URINE phencyclidin e NEGATI VE NG/mL <25 normal Not Available [facility] [place] [facility] [address], [place], [address], 12/27/2024 13:26:35 12/24/19 25 12/27/2024 DRUG TOX MONIT ORING 9 W/CON F, URINE comment See Note 3 Note 1 This drug testi ng is for medic al treat ment only. The resul ts are presu mptiv e; based only on scree su metho ds, and they have not been confi rmed by a defin itive metho d. Jada sis was perfo rmed as non-f orens ic testi ng and these resul ts shoul d be used only [facility] to rende r diagn osis or treat ment, or to monit or progr ess of medic al condi tions . For efe quinn with inter preti ng these drug resul ts, pleas e conta ct a [facility] T[facility] Speci alist : -R X TOX ( [phone] ), M-F, 8am-6 pm EST. Note 2 This test was devel oped and its jada tical perfo rmanc e kevin cteri stics have been deter mined by [facility]. It has not been clear ed or appro clifford by the FDA. This assay has been valid ated pursu ant to the CLIA regul ation s and is used for clini yonas purpo ses. Note 3 This drug testi ng is for medic al treat ment only. Jada sis was perfo rmed as non-f orens ic testi ng and these resul ts shoul d be used only by [facility]alt [facility] to rende r diagn osis or treat ment, or to monit or progr ess of medic al condi tions . For efe quinn with inter preti ng these drug resul ts, pleas e conta ct a [facility] Toxic [facility] Speci alist : -R X TOX ( [phone] ), M-F, 8am-6 pm EST. Not Available [facility] [address], [address], 12/27/2024 13:26:35 04/14/20 25 04/19/2025 DRUG TOX MONIT ORING ALCOH OL ETHYL , SCRN, U alcohol, ethyl NEGATI VE mg/dL <20 normal Not Available [facility] [place] [facility] [address], [address], 04/19/2025 11:45:55 04/14/20 25 04/19/2025 DRUG TOX MONIT ORING ALCOH OL ETHYL , SCRN, U comment See Note 1 Not Available [facility] [place] [facility] [address], [place], [address], 04/19/2025 11:45:55 04/14/20 25 04/19/2025 DRUG TOX MONIT ORING 9 W/CON F, URINE amphetamines NEGATI VE NG/mL <500 normal Not Available [facility] [place] [facility] [address], [place], [address], 04/19/2025 11:45:56 04/14/20 25 04/19/2025 DRUG TOX MONIT ORING 9 W/CON F, URINE barbiturates NEGATI VE NG/mL <300 normal Not Available [facility] [place] [facility] [address], [place], [address], 04/19/2025 11:45:56 04/14/20 25 04/19/2025 DRUG TOX MONIT ORING 9 W/CON F, URINE benzodiazepi woodrow NEGATI VE NG/mL <100 normal Not Available [facility] [place] [facility] [address], [place], [address], 04/19/2025 11:45:56 04/14/20 25 04/19/2025 DRUG TOX MONIT ORING 9 W/CON F, URINE buprenorphin e NEGATI VE NG/mL <5 normal Not Available [facility] [place] [facility] [address], [place], [address], 04/19/2025 11:45:56 04/14/20 25 04/19/2025 DRUG TOX MONIT ORING 9 W/CON F, URINE cocaine metabolite NEGATI VE NG/mL <150 normal Not Available [facility] [place] [facility] [address], [place], [address], 04/19/2025 11:45:56 06/03/20 25 04/19/2025 DRUG TOX MONIT ORING 9 W/CON F, URINE heroin metabolite NEGATI VE NG/mL <10 normal Not Available [facility] [place] [facility] [address], [place], [address], 04/19/2025 11:45:56 04/14/20 25 04/19/2025 DRUG TOX MONIT ORING 9 W/CON F, URINE marijuana metabolite 20 POSITI VE NG/mL <20 abnormal Marij uana Metab olite detec tramaine is consi stent with expos ure to Marij uana (THC) and/o r hemp deriv ed produ cts. Some juris dicti ons do not inclu de hemp withi n the defin ition of Marij uana. Not Available [facility] [place] [facility] [address], [place], [address], 04/19/2025 11:45:56 04/14/20 25 04/19/2025 DRUG TOX MONIT ORING 9 W/CON F, URINE marijuana metabolite 104 NG/mL <5 high See Note 2 Not Available [facility] [place] [facility] [address], [place], [address], 04/19/2025 11:45:56 04/14/20 25 04/19/2025 DRUG TOX MONIT ORING 9 W/CON F, URINE MDMA/mda NEGATI VE NG/mL <500 normal Not Available [facility] [place] [facility] [address], [place], [address], 04/19/2025 11:45:56 04/14/20 25 04/19/2025 DRUG TOX MONIT ORING 9 W/CON F, URINE methadone metabolite NEGATI VE NG/mL <100 normal Not Available [facility] [place] [facility] [address], [place], [address], 04/19/2025 11:45:56 04/14/20 25 04/19/2025 DRUG TOX MONIT ORING 9 W/CON F, URINE opiates NEGATI VE CONFIR MED NG/mL <100 normal Not Available [facility] [place] [facility] [address], [place], [address], 04/19/2025 11:45:56 04/14/20 25 04/19/2025 DRUG TOX MONIT ORING 9 W/CON F, URINE codeine NEGATI VE NG/mL <50 normal See Note 2 Not Available [facility] [place] [facility] [address], [place], [address], 04/19/2025 11:45:56 04/14/20 25 04/19/2025 DRUG TOX MONIT ORING 9 W/CON F, URINE hydrocodone NEGATI VE NG/mL <50 normal See Note 2 Not Available [facility] [place] [facility] [address], [place], [address], 04/19/2025 11:45:56 04/14/20 25 04/19/2025 DRUG TOX MONIT ORING 9 W/CON F, URINE hydromorphon e NEGATI VE NG/mL <50 normal See Note 2 Not Available [facility] [place] [facility] [address], [place], [address], 04/19/2025 11:45:56 04/14/20 25 04/19/2025 DRUG TOX MONIT ORING 9 W/CON F, URINE morphine NEGATI VE NG/mL <50 normal See Note 2 Not Available [facility] [place] [facility] [address], [place], [address], 04/19/2025 11:45:56 04/14/20 25 04/19/2025 DRUG TOX MONIT ORING 9 W/CON F, URINE norhydrocodo ne NEGATI VE NG/mL <50 normal See Note 2 Not Available [facility] [place] [facility] [address], [place], [address], 04/19/2025 11:45:56 04/14/20 25 04/19/2025 DRUG TOX MONIT ORING 9 W/CON F, URINE oxycodone POSITI VE NG/mL <100 abnormal Not Available [facility] [place] [facility] [address], [place], [address], 04/19/2025 11:45:56 04/14/20 25 04/19/2025 DRUG TOX MONIT ORING 9 W/CON F, URINE noroxycodone 1867 NG/mL <50 high See Note 2 Not Available [facility] [place] [facility] [address], [place], [address], 04/19/2025 11:45:56 04/14/20 25 04/19/2025 DRUG TOX MONIT ORING 9 W/CON F, URINE oxycodone 163 NG/mL <50 high See Note 2 Not Available [facility] [place] [facility] [address], [place], [address], 04/19/2025 11:45:56 04/14/20 25 04/19/2025 DRUG TOX MONIT ORING 9 W/CON F, URINE oxymorphone NEGATI VE NG/mL <50 normal See Note 2 Not Available [facility] [place] [facility] [address], [place], [address], 04/19/2025 11:45:56 04/14/20 25 04/19/2025 DRUG TOX MONIT ORING 9 W/CON F, URINE phencyclidin e NEGATI VE NG/mL <25 normal Not Available [facility] [place] [facility] [address], [place], [address], 04/19/2025 11:45:56 04/14/20 25 04/19/2025 DRUG TOX MONIT ORING 9 W/CON F, URINE comment See Note 3 Note 1 This drug testi ng is for medic al treat ment only. The resul ts are presu mptiv e; based only on scree su metho ds, and they have not been confi rmed by a defin itive metho d. Jada sis was perfo rmed as non-f orens ic testi ng and these resul ts shoul d be used only by healt hcare provi ders to rende r diagn osis or treat ment, or to monit or progr ess of medic al condi tions . For efe quinn with inter preti ng these drug resul ts, pleas e conta ct a [facility] T[facility] Speci alist : -R X TOX ( [phone] ), M-F, 8am-6 pm EST. Note 2 This test was devel oped and its jada tical perfo rmanc e kevin cteri stics have been deter mined by [facility]. It has not been clear ed or appro clifford by the FDA. This assay has been valid ated pursu ant to the CLIA regul ation s and is used for clini yonas purpo ses. Note 3 This drug testi ng is for medic al treat ment only. Jada sis was perfo rmed as non-f orens ic testi ng and these resul ts shoul d be used only by healt hcare provi ders to rende r diagn osis or treat ment, or to monit or progr ess of medic al condi tions . For efe quinn with inter preti ng these drug resul ts, pleas e conta ct a [facility] Toxic ology Speci alist : -R X TOX ( [phone] ), M-F, 8am-6 pm EST. Not Available [facility] [place] [facility] [address], [place], [address], 04/19/2025 11:45:56 01/21/20 25 01/20/2025 LDCT, chest , for lung cance r scree su No observ ation record ed. [facility] [address], [place], [address], 01/22/2025 14:44:43 01/23/20 25 01/20/2025 LDCT, chest , for lung cance r jordie su No observ ation record ed. melissa [facility] [address] [facility], [place], [address], 01/22/2025 14:44:43 08/12/20 25 08/11/2025 MAMMO , scree su, bilat eral No observ ation record ed. [facility] [address] [place], [address], 08/13/2025 11:55:39 09/15/20 25 MRI, lumba r spine , w/o contr ast No observ ation record ed. [facility] 2024 11:55:50 09/15/20 25 XR, lumba r spine , 2 view No observ [facility]ion [facility] ed. [facility] 2024 11:56:54 Result Notes None recorded. Problems Name Problem SNOMED Code Status Onset Date Resolution Date Notes Provider Name and Address Organization Details Recorded Time Otitis externa 1111759 Completed 10/09/2017 Aryan Sears MD [address] [place] [address], [id number] , [facility] 7 09:13:02 Fibromyo sitis 48271081 Active disabili ty - complex regional pain syndrome , mood d/o Aryan Sears MD [address] [place] [address], [phone] , [facility] 3 15:12:42 Acute sinusiti s 08169318 Completed 10/09/2017 Aryan Sears MD [address] [place] [address], [address] , [facility] 5 17:58:38 Hypertri glycerid emia 942716139 Active Aryan Sears MD [address] [place] [address], [address] , [facility] 3 15:12:42 Mammogra phy abnormal [id number] Completed 04/22/2024 Aryan Sears MD [address] [place] [address], [address] , [facility] 4 14:24:32 Low back pain 490333275 Active Shi Espana NP [address] [place] [address], [address] , [facility] 5 10:20:40 Chest pain 29097999 Completed 10/09/2017 Aryan Sears MD [address] [place] [address], [address] , [facility] 7 09:12:55 Sinusiti s 38745972 Completed 10/09/2017 Aryan Sears MD [address] [place] [address], , [facility] 7 09:12:24 Vaginiti s 49143689 Completed 10/09/2017 Shi Espana NP [address] [place] [address], [address] , [facility] 5 10:55:21 Hypothyr oidism 47098976 Active Aryan Sears MD [address] [place] [address], [address] , [facility] 3 15:12:42 Restless legs syndrome 02121676 Active Aryan Sears MD [address] [place] [address], [address] , [facility] 3 15:12:42 Depressi ve disorder 31783998 Active Aryan Sears MD [address] [place] [address], [address] , [facility] 3 15:12:42 Asthma 605559889 Active Aryan Sears MD [address] [place] [address], [address] , [facility] 3 15:12:42 Essentia l hyperten yashira 68972330 Active Aryan Sears MD [address] [place] [address], [address] , [facility] 3 15:12:42 Cough 25104490 Completed 10/09/2017 Shi Espana, ANA [address] [place] [address], [address] , [facility] 4 11:02:07 Rotator cuff impingem ent syndrome [id number] Active 2014 Aryan Sears MD [address] [place] [address], [address] , [facility] 3 15:12:42 Osteoart hritis of knee 715013071 Active 2016 L knee arthropl asty 02/28 - s/p prior ortho report of L lateral compartm ent which is atypical for OA & not a surgical candidat e with regional pain syndrome et al. Aryan Sears MD [address] [place] [address], [address] , [facility] 3 15:12:42 Complex regional pain syndrome type II of left lower limb [id number] 9103 Active 2017 Aryan Sears MD [address] [place] [address], [address] , [facility] 3 15:12:42 Chronic obstruct augustine pulmonar y disease 50193389 Active 2017 Aryan Sears MD [address] [place] [address], [address] , [facility] 3 15:12:41 Fibromya lgia 338349489 Active 2017 Aryan Sears MD [address] [place] [address], [address] , [facility] 3 15:12:42 Greater trochant richie pain syndrome 6380637 Active 2018 Aryan Sears MD [address] [place] [address], [address] , [facility] 3 15:12:42 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 [id number] 47718 Active 2018 Aryan Sears MD [address] [place] [address], [address] , [facility] 3 15:12:41 History of operativ e procedur e on knee 193299938 Active 2018 Aryan Sears MD [address] [place] [address], [address] , [facility] 3 15:12:42 Gastroes ophageal reflux disease 407685276 Active 2018 Aryan Sears MD [address] [place] [address], [address] , [facility] 3 15:12:42 Subluxat ion of sternocl avicular joint 384822289 Active 2018 Aryan Sears MD [address] [place] [address], [address] , [facility] 3 15:12:42 Spinal enthesop athy of cervical region Active 2019 Aryan Sears MD [address] [place] [address], [address] , [facility] 3 15:12:42 Cervical spondylo sis 519340053 Active 2019 Aryan Sears MD [address] [place] [address], [address] , [facility] 3 15:12:42 Anxiety 72388063 Active 2020 Aryan Sears MD [address] [place] [address], [address] , [facility] 3 15:12:42 Mammogra phy normal 441155418 Active 2021, repeat 05/2024 Aryan Sears MD [address] [place] [address], [address] , [facility] 3 15:12:42 Arthropa thy 955396637 Active 2021 Aryan Sears MD [address] [place] [address], [address] , [facility] 3 15:12:42 Melanocy tic nevus 457837108 Active 2021 Aryan Sears MD [address] [place] [address], [address] , [facility] 3 15:12:42 Abdomina l pain 76533800 Active 2021 Aryan Sears MD [address] [place] [address], [address] , [facility] 3 15:12:42 Chronic pain 48695688 Active 2022 Aryan Sears MD [address] [place] [address], [address] , [facility] 3 15:12:42 Chronic pain followin g left total knee arthropl asty [id number] 692857 Active 2022 Aryan Sears MD [address] [place] [address], [address] , [facility] 3 15:12:41 Narcotic drug user 45276337 Completed 202204/22/2024 Removal Reason: sober 35 yrs 04/2024 Aryan Sears MD [address] [place] [address], [address] , [facility] 4 14:24:55 Acute sinusiti s 78733424 Completed 202204/18/2025 Aryan Sears MD [address] [place] [address], [address] , [facility] 5 17:58:38 [facility] 72817153 Completed 202204/18/2025 Aryan Sears MD [address] [place] [address], [address] , [facility] 5 17:59:01 Eczema 09434607 Active 2022 Shi Espana NP [address] [place] [address], [address] , [facility] 3 12:18:34 Allergic rhinitis 98561265 Active 2022 Shi Espana NP [address] [place] [address], [address] , [facility] 3 12:20:04 Neck pain 09917015 Active 2022 Shi Espana NP [address] [place] [address], [address] , [facility] 3 12:27:10 Weakness of left lower limb Active 2022 Shi Espana NP [address] [place] [address], [address] , [facility] 3 12:27:27 Splits in nails 019859959 Active 2022 Shi Espana NP [address] [place] [address], [address] , [facility] 3 12:32:20 Difficul ty swallowi ng 210050163 Completed 202304/22/2024 s/p throat surgery much improved Removal Reason: s/p surgery much improved Aryan Sears MD [address] [place] [address], [address] , [facility] 4 14:25:26 Chronic sinusiti s 92821049 Active 2023 Shi Espana NP [address] [place] [address], [address] , [facility] 4 12:18:58 Backache 555120806 Active 2023 Shi Espana NP [address] [place] [address], [address] , [facility] 4 10:43:26 Dyslipid emia 718434268 Active 2023 Shi Espana NP [address] [place] [address], [address] , [facility] 4 10:34:43 Cough 58117279 Active 2023 Shi Espana NP [address] [place] [address], [address] , [facility] 4 11:02:07 Systolic murmur 88875036 Active 2023 Shi Espana NP [address] [place] [address], [address] , [facility] 4 10:06:47 Acute upper respirat ory infectio n 36654491 Completed 202304/18/2025 Aryan Sears MD [address] [place] [address], [address] , [facility] 5 17:58:30 Gastroes ophageal reflux disease without esophagi tis 937284407 Active 2024 Shi Espana NP [address] [place] [address], [address] , [facility] 5 10:50:00 Vaginiti s 19922639 Active 2024 Shi Espana NP [address] [place] [address], [address] , [facility] 5 10:55:21 Prediabe kavon 974761163 Active 2024 Shi Espana NP [address] [place] [address], [address] , [facility] 5 10:57:06 Pain of left shoulder joint [id number] 640741 Active 2024 Shi Espana NP [address] [place] [address], [address] , [facility] 5 10:16:25 Notes:medication pain agreem ent completed 11/06/2022. wl Problem Notes None recorded. Medical Equipment None Reported. Allergies Allergen ID Allergen Name Allergen Category Reaction Reaction Severity Criticality Documentation Date Start Date Code Code System Note Provider Name and Address Organization Details Recorded Time 18331 povidone- iodine medicatio n rash Not available Not available 06/28/20232014 8611 RxNorm Other react ions and sever ities : 'Derm atiti s'. Aryan Sears MD [address] [place] [address], [address], [facility] 3 15:12:10 69451 celecoxib medicatio n Not available Not available Not available 06/28/20232018 40916 7 RxNorm Aryan Sears MD [address] [place] [address], [address], [facility] 3 15:12:10 96143 avocado allergeni c extract food,medi cation other Not available Not available 06/28/20232017 51165 2 RxNorm Aryan Sears MD [address] [place] [address], [address], [facility] 3 15:12:10 4101 Betadine medicatio n rash Not available Not available 09/09/201370254 0 RxNorm Aryan Sears MD [address] [place] [address], [address], [facility] 3 09:53:19 4102 morphine medicatio n Not available Not available Not available 09/09/2013 7052 RxNorm Other react ions and sever ities : 'Naus ea and/o r Vomit ing'. Aryan Sears MD [address] [place] [address], [address], [facility] 3 15:12:10 7331 latex environme nt,medica tion rash Not available Not available 11/07/20162014 13238 91 RxNorm Other react ions and sever ities : 'Derm atiti s'. Aryan Sears MD [address] [place] [address], [address], [facility] 3 15:12:10 Medications Name Sig Start Date Stop Date Status Note LastModified by Organization Details LastModified Time Prescript ion - Clarifica tion 06/14 completed inhaler meds Not Available Not Available Not Available famotidin e 20mg tab TAKE 2 TABLETS BY MOUTH TWICE DAILY 09/14 completed Not Available Not Available Not Available terconazo le 0.4 % vaginal cream Insert 1 applicat orful every day by vaginal route as directed for 7 days. active Not Available Not Available No t Available clonidine HCl 0.1 mg tablet TAKE 1 TABLET BY MOUTH NEEDED 07/28 completed Not Available Not Available Not Available acetamino phen 325 mg tablet Take 975 mg every 8 hours by oral route. 07/28 completed Not Available Not Available Not Available benztropi ne 0.5 mg tablet TAKE 1 TABLET BY MOUTH TWICE DAILY NEEDED 04/14 completed Not Available Not Available Not Available ropinirol e 1 mg tablet TAKE 1 TABLET BY MOUTH THREE TIMES DAILY 04/14 completed Not Available Not Available Not Available nicotine 14 mg/24 hr daily transderm al patch APPLY 1 PATCH TOPICALL Y ONCE DAILY 04/14 completed Not Available Not Available Not Available albuterol sulfate 2.5 mg/3 mL (0.083 %) solution for nebulizat ion Inhale 3 mL 3 times a day by nebuliza tion route as needed for 30 days. 05/11 completed Not Available Not Available Not Available cetirizin e 10 mg tablet TAKE 1 TABLET BY MOUTH ONCE DAILY active Not Available Not Available No t Available azithromy billy 250 mg tablet TAKE 2 TABLETS BY MOUTH ON DAY 1, AND THEN TAKE 1 TABLET BY MOUTH ONCE A DAY ON DAY 2 THROUGH DAY 5 12/04 completed Not Available Not Available Not Available Terazol 3 80 mg vaginal supposito ry Insert 1 supposit ory every day by vaginal route as directed for 3 days. 08/29 completed Not Available Not Available Not Available fluconazo le 150 mg tablet TAKE 1 TABLET BY MOUTH THREE TIMES A WEEK DIRECTED FOR 7 DAYS active Not Available Not Available No t Available ranitidin e 300 mg tablet 05/11 completed Not Available Not Available Not Available meloxicam 15 mg tablet TAKE 1 TABLET BY MOUTH ONCE DAILY active Not Available Not Available No t Available famotidin e 40 mg tablet TAKE 2 TABLETS BY MOUTH TWICE DAILY FOR 30 DAYS 07/23 completed Not Available Not Available Not Available prednison e 20 mg tablet Take 2 tablets every day by oral route as directed for 5 days. 07/21 completed Not Available Not Available Not Available clonazepa m 0.5 mg tablet TAKE 1 TABLET BY MOUTH NEEDED 04/14 completed Not Available Not Available Not Available prednison e 5 mg tablet TAKE 4 TABLETS BY MOUTH DAILY FOR 3 DAYS, THEN 3 DAILY FOR 3 DAYS, THEN 2 DAILY FOR 3 DAYS, THEN 1 DAILY FOR 3 DAYS active Not Available Not Available No t Available clonazepa m 1 mg tablet TAKE 1 TABLET BY MOUTH NEEDED 07/23 completed Not Available Not Available Not Available topiramat e 25 mg tablet TAKE 2 TABLETS BY MOUTH ONCE DAILY IN THE MORNING 04/28 completed Not Available Not Available Not Available metronida zole 500 mg tablet 01/21 completed Not Available Not Available Not Available sulfameth oxazole 800 mg-trimet hoprim 160 mg tablet TAKE 1 TABLET BY MOUTH EVERY 12 HOURS FOR 10 DAYS 11/07 completed Not Available Not Available Not Available ondansetr on 8 mg disintegr ating tablet 1 TABLET BY MOUTH 3 TIMES A DAY NEEDED NAUSEA & VOMITING 07/28 completed Not Available Not Available Not Available ketorolac 0.5 % eye drops active Not Available Not Available Not Available oxycodone -acetamin ophen 5 mg-325 mg tablet 11/07 completed Not Available Not Available Not Available hydromorp ward 2 mg tablet 05/11 completed Not Available Not Available Not Available famotidin e 20 mg tablet Take 2 tablets by mouth twice per day 09/14 completed Not Available Not Available Not Available gabapenti n 800 mg tablet 11/07 completed Not Available Not Available Not Available ciproflox acin 0.3 % eye drops 02/03 completed Not Available Not Available Not Available diazepam 2 mg tablet TAKE 1 TABLET BY MOUTH EVERY 8 HOURS NEEDED WHEN FEELING SYMPTOMS OF ESOPHAGE AL SPASMS 07/23 completed Not Available Not Available Not Available hydrocort isone 1 % topical cream APPLY A THIN FILM TO AFFECTED SKIN RUB IN GENTLY/C OMPLETEL Y TWICE DAILY NEEDED FOR ITCH 01/21 completed Not Available Not Available Not Available levothyro xine 50 mcg tablet TAKE 1 TABLET BY MOUTH DAILY DIRECTED active Not Available Not Available No t Available pantopraz ole 40 mg tablet,de layed release TAKE 1 TABLET BY MOUTH TWICE DAILY active Not Available Not Available No t Available oseltamiv ir 75 mg capsule TAKE ONE CAPSULE TWICE A DAY FOR 5 DAYS 05/11 completed Not Available Not Available Not Available ranitidin e 150 mg tablet active Not Available Not Available Not Available dexametha sone 4 mg tablet 11/07 completed Not Available Not Available Not Available clotrimaz ole-betam ethasone 1 %-0.05 % topical cream 05/11 completed Not Available Not Available Not Available prednison e 50 mg tablet active Not Available Not Available Not Available lidocaine 5 % topical patch 11/07 completed Not Available Not Available Not Available Advair Diskus 250 mcg-50 mcg/dose powder for inhalatio n active Not Available Not Available Not Available nicotine 21 mg/24 hr daily transderm al patch APPLY 1 PATCH TOPICALL Y ONCE DAILY DIRECTED 04/14 completed Not Available Not Available Not Available Combivent 18 mcg-103 mcg/actua tion aerosol inhaler Inhale 2 puffs 4 times a day by inhalati on route as needed. 2012 active Not Available Not Available Not Avai lable docusate sodium 100 mg capsule Take 400 mg by oral route. 04/14 completed Not Available Not Available Not Available Senokot 8.6 mg tablet 2 {tbl}s by oral route. 2018 active Not Available Not Available Not Avai lable betametha sone, augmented 0.05 % topical ointment APPLY OINTMENT TOPICALL Y ONCE DAILY TO AFFECTED AREA(S). DO NOT EXCEED 45 GRAMS PER WEEK 07/28 completed Not Available Not Available Not Available gabapenti n 300 mg capsule Take 1 -2 CAPSULE 4TIMES A DAY by oral route. 11/07 completed Not Available Not Available Not Available hydrochlo rothiazid e 25 mg tablet TAKE 1 TABLET BY MOUTH DAILY active Not Available Not Available No t Available dexametha sone sodium phosphate 4 mg/mL injection solution active Not Available Not Available Not Available hydroxych loroquine 200 mg tablet TAKE 1 TABLET BY MOUTH ONCE DAILY active Not Available Not Available No t Available Cipro HC 0.2 %-1 % ear drops,celia pension Instill 3 drops every 12 hours by otic route. active Not Available Not Available No t Available oxycodone -acetamin ophen 7.5 mg-325 mg tablet active Not Available Not Available Not Available albuterol sulfate HFA 90 mcg/actua tion aerosol inhaler INHALE 2 PUFFS INTO THE LUNGS EVERY 4 HOURS NEEDED active Not Available Not Available No t Available Peak Air Peak Flow Meter DIRECTED active Not Available Not Available No t Available ondansetr on 4 mg disintegr ating tablet DISSOLVE 1 TABLET IN MOUTH EVERY 8 HOURS NEEDED FOR NAUSEA AND VOMITING active Not Available Not Available No t Available diazepam 5 mg tablet TAKE 1-2 TABLETS BY MOUTH 2 HOURS PRIOR TO PROCEDUR E 07/23 completed Not Available Not Available Not Available amoxicill in 875 mg-potass ium clavulana te 125 mg tablet 10/18 completed Not Available Not Available Not Available oxycodone 5 mg tablet 05/10 completed Not Available Not Available Not Available Pneumovax -23 25 mcg/0.5 mL injection syringe PHARMACI ST ADMINIST ERED IMMUNIZA TION ADMINIST ERED AT TIME OF DISPENSI NG 05/11 completed Not Available Not Available Not Available escitalop fantasma 10 mg tablet TAKE ONE TABLET BY MOUTH DAILY 10/10 completed Not Available Not Available Not Available escitalop fantasma 20 mg tablet Take 1 tablet every day by oral route. 02/26 completed Not Available Not Available Not Available Restasis 0.05 % eye drops in a dropperet te INSTILL 1 DROP INTO EACH EYE TWICE DAILY active Not Available Not Available No t Available moxifloxa billy 0.5 % eye drops active Not Available Not Available No t Available bupropion HCl XL 300 mg 24 hr tablet, extended release TAKE 1 TABLET BY MOUTH ONCE DAILY active Not Available Not Available No t Available bupropion HCl XL 150 mg 24 hr tablet, extended release 07/23 completed Not Available Not Available Not Available escitalop fantasma 5 mg tablet TAKE 1 TABLET BY MOUTH EVERY DAY 06/21 completed Not Available Not Available Not Available mirtazapi ne 7.5 mg tablet Take 1 tablet every day by oral route at bedtime. 12/21 completed Not Available Not Available Not Available duloxetin e 30 mg capsule,d elayed release TAKE 1 CAPSULE BY MOUTH ONCE DAILY IN THE MORNING 10/09 completed Not Available Not Available Not Available pregabali n 150 mg capsule TAKE 1 CAPSULE BY MOUTH THREE TIMES DAILY 2024 active Not Available Not Available Not Avai lable Lyrica 75 mg capsule 11/07 completed Not Available Not Available Not Available Lyrica 100 mg capsule 11/07 completed Not Available Not Available Not Available Vitamin D3 active Not Available Not Available Not Available Miralax active Not Available Not Avail able Not Available lutein active Not Available Not Availa ble Not Available Excedrin active Not Available Not Avai lable Not Available olopatadi ne 0.2 % eye drops INSTILL 1 DROP INTO EACH EYE ONCE DAILY 05/11 completed Not Available Not Available Not Available peg 3350-elec trolytes 236 gram-22.7 4 gram-6.74 gram-5.86 gram solution 07/10 completed Not Available Not Available Not Available oxycodone 10 mg tablet TAKE 1 TABLET BY MOUTH EVERY 6 HOURS NEEDED 2024 active Not Available Not Available Not Avai lable levothyro xine 50 mcg capsule Take 1 capsule every day by oral route. 05/11 completed Not Available Not Available Not Available Lastacaft 0.25 % eye drops active Not Available Not Available No t Available Thera-D 4000 100 mcg (4,000 unit) tablet 4000 units by oral route. active Not Available Not Available No t Available lidocaine 5 % topical ointment APPLY TOPICALL Y TO AFFECTED AREA 4 TIMES A DAY NEEDED 07/23 completed Not Available Not Available Not Available Combivent Respimat 20 mcg-100 mcg/actua tion solution for inhalatio n INHALE 1 PUFF BY MOUTH 4 TIMES DAILY active Not Available Not Available No t Available Anoro Ellipta 62.5 mcg-25 mcg/actua tion powder for inhalatio n 05/11 completed Not Available Not Available Not Available marijuana (cannabis ) active States that she uses it for pain controlh as license Not Available Not Available Not Available naloxone 4 mg/actuat ion nasal spray ADMINIST ER A SINGLE SPRAY IN ONE NOSTRIL UPON SIGNS OF OPIOID OVERDOSE . CALL 911. REPEAT AFTER 3 MINUTES IF NO RESPONSE . active Not Available Not Available No t Available Vraylar 1.5 mg capsule TAKE 1 CAPSULE BY MOUTH AT BEDTIME 04/14 completed Not Available Not Available Not Available Robitussi n Cough-Berenice st Congestio n DM 5 mg-100 mg/5 mL oral liquid Take 20 mL 4 times a day by oral route as needed for 5 days. 2023 active Not Available Not Available Not Avai lable lidocaine 5 % topical kit 2020 active Not Available Not Available Not Avai lable Shingrix (PF) 50 mcg/0.5 mL intramusc ular suspensio n, kit PHARMACI ST ADMINIST ERED IMMUNIZA TION ADMINIST ERED AT TIME OF DISPENSI NG 05/11 completed Not Available Not Available Not Available Fluzone Quad (PF) 60 mcg (15 mcg x 4)/0.5 mL IM syringe PHARMACI ST ADMINIST ERED IMMUNIZA TION ADMINIST ERED AT TIME OF DISPENSI NG 05/11 completed Not Available Not Available Not Available BinaxNOW COVID-19 Ag Self Test kit Use as Directed on the Package 07/28 completed Not Available Not Available Not Available Vitals Date Recorded Body height Provider Name an d Address Organization Details Last Updated DateTime 12/24/2024 160.66 cm Aryan Sears MD [address] [place] [address], [phone], [facility] 12/24/2024 14:04:01 Date Recorded Body height Provider Name an d Address Organization Details Last Updated DateTime 04/14/2025 160.66 cm Aryan Sears MD [address] [place] [address], [address], [facility] 04/14/2025 11:17:07 Social History Question Answer Notes LastModified by Organizat ion Details LastModified Time Tobacco Smoking Status Never Smoker Not Available [facility] 09/14/2020 03:12:41 Do You Have An Advance Directive? Yes [id number] Information not available 09/14/2020 What Is Your Level Of Caffeine Consumption? Moderate [id number] Information not available 09/14/2020 How Much Tobacco Do You Chew? None [id number] Information not available 09/14/2020 What Type Of Diet Are You Following? REGULAR Avoids Red Meat [id number] Information not available 09/14/2020 Education 2 Year College Information not available 09/09/2013 Are There Any Guns Present In Your Home? No [id number] Information not available 09/14/2020 Marital Status Informatio n not available 09/09/2013 What Was The Date Of Your Most Recent Tobacco Screening? 01/21/2019 [id number] Information not available 09/14/2020 Seat Belts Used Routinely Yes Information not available 09/09/2013 Smoke Alarm In Home Yes Information not available 09/09/2013 General Stress Level Medium Information not available 09/09/2013 Do You Use Sunscreen Routinely? Yes [id number] Information not available 09/14/2020 Sex: Unknown Functional Status Question Answer Note LastModified by Organizat ion Details LastModified Time What is your level of alcohol consumption? 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 None returning to [employer] pool [id number] Information not available 09/14/2020 Mental Status None recorded. Family History Relationship Description Onset Age of this Age Resolved Age Notes LastModified by Organization Details LastModified Time Father Heart disease wlamorie Not available 2012 09:53:19 Mother Heart disease wlamorie Not available 2012 09:53:19 Mother Problem lung cancer wlamorie Not available 09/09/2013 09:53:19 Maternal Grandmother Heart disease wlamorie Not available 2012 09:53:19 Paternal Grandmother Heart disease wlamorie Not available 2012 09:53:19 Medical History No medical history recorded. Gynecological HistoryNo gynecological history recorded. Obstetrics History GPAL:G 0 P 0 0 0 0 Immunizations Vaccine Type Date Status Note Provider Nam e and Address Organization Details Recorded Time COVID-19, mRNA, LNP-S, PF, 30 mcg/0.3 mL dose 1 completed Not Available [facility] 06/28/2023 10:52:12 influenza, unspecified formulation 3 completed Aryan Sears MD [address] [place] [address], [phone], [facility] 09/11/2023 08:09:09 COVID-19, mRNA, LNP-S, PF, 50 mcg/0.5 mL 3 completed Aryan Sears MD [address] [place] [address], [phone], [facility] 09/17/2023 14:21:15 RSV, recombinant, protein subunit RSVpreF, adjuvant reconstituted, 0.5 mL, PF 3 completed Aryan Sears MD [address] [place] [address], [address], [facility] 09/17/2023 14:23:31 COVID-19, mRNA, LNP-S, PF, 30 mcg/0.3 mL dose 4 completed Aryan Sears MD [address] [place] [address], [address], [facility] 07/17/2024 11:42:00 Influenza, recombinant, quadrivalent, PF 4 completed Aryan Sears MD [address] [place] [address], [address], [facility] 07/17/2024 11:43:16 HepB-CpG 5 completed Aryan Sears MD [address] [place] [address], [phone], [facility] [place] 03/18/2025 13:37:47 Past Encounters Encounter ID Performer Location Encounter Start Date Encounter Closed Date Diagnosis/Indication Diagnosis SNOMED-CT Code Diagnosis ICD10 Code Diagnosis IMO Codes Diagnosis Note [id number] Aryan Sears MD MAIN [address] [address] 08/21/2013 08:53:44 08/21/2013 13:59:31 Sinusitis 18726060 yearly ; every fall and most has this; allergies meds don't help, ends up with zamora [id number] Aryan Sears MD MAIN SHOP [address] [place] [address] 0 09/09/2013 09:43:52 09/09/2013 10:36:09 Hypothyroidism 51543957 due for labs Restless l egs syndrome 22803590 gabapentin works great for her, on it for while Depressive disorder 51465204 mostly anger; tried weaning off and didn't go well, very angry Asthma 833103393 can't use steroids due to thrush; wants to try combivent; uses it daily Essential hypertension 04748657 Vaginitis 60016696 Cough 44137380 [id number] Aryan Sears MD [address] [address] 0 02/06/2014 10:48:49 02/06/2014 11:20:26 Otitis externa 4717262 Asthma 634611586 [id number] Aryan Sears MD [address] [address] 0 02/17/2014 10:36:31 02/17/2014 10:52:15 Sinusitis 68696406 yearly ; every fall and most springs has this; allergies meds don't help, ends up with zamora [id number] Aryan Sears MD [address] [address] 07/23/2014 11:48:15 07/23/2014 15:02:31 Chronic obstructive pulmonary disease 26664148 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 [id number] Aryan Sears MD [address] [address] 08/17/2014 09:22:46 08/17/2014 13:39:50 Acute sinusitis 78246492 Hypertriglyceridemia 961502763 TRY OMEGA 3'S , WATCH SUGAR INTAKE AND FU TRIG CK IN 3 MONTHS [id number] Aryan Sears MD [address] [address] 0 03/05/2015 11:16:55 03/10/2015 13:45:36 Acute sinusitis 48210724 [id number] Aryan Sears MD [address] [address] 0 11/09/2015 09:01:40 11/09/2015 09:45:30 Sinusitis 25099234 J32.9 yearly ; every fall and most springs has this; allergies meds don't help, ends up with zamora [id number] Aryan Sears MD [address] [address] 0 12/21/2015 10:19:46 12/21/2015 11:09:22 Low back pain 208251017 M54.5 hx scoliosis between scapula [id number] Aryan Sears MD MAIN [address] [address] 0 07/13/2016 08:38:10 07/13/2016 08:59:50 Otogenic otalgia 73032293 H92.09 Backache 351910346 M54.9 severe arthritis in back Knee pain 92292693 M25.5 62 left knee enlarged; working with specialist ; injections not working; trial of plt injection [id number] Aryan Sears MD [address] [address] 0 10/18/2016 10:59:55 10/18/2016 12:54:10 Viral hepatitis C 08294940 B19.20 treated with interferon years ago; treated 3 months with meds ; heart palpitatio ns so stopped early Adult heal th examination 273735861 Z00.00 Backache 186869723 M54.9 severe arthritis in backDr. park injected back Knee pain 50460977 M25.5 62 left knee enlarged; working with specialist ; injections not working; trial of plt injection Chronic ob structive pulmonary disease 50096487 J44.9 [id number] Aryan Sears MD [address] [address] 0 10/09/2017 08:50:48 10/09/2017 10:01:40 Asthma 700295817 J45.909 Low back pain 779796787 M54.5 [id number] Aryan Sears MD [address] [address] 0 11/07/2017 10:34:36 11/07/2017 12:21:26 Adult health examination 839466420 Z00.00 Allergic rhinitis 860708 04 J30.9 Candidiasis of mouth 797 76497 B37.0 Hypertensive disorder 38 023254 I10 [id number] Aryan Sears MD [address] [address] 0 01/21/2019 11:52:28 01/21/2019 12:52:12 Allergic rhinitis 60821981 J30.9 Pain in left knee 336254 4318 14103 M25.562 scheduled for left knee replacemen t [id number] Aryan Sears MD [address] [address] 0 06/10/2019 09:56:05 06/10/2019 10:34:29 Right lower quadrant pain 248201754 R10.31 ? hernia; to surg; she will go [id number] Aryan Sears MD [address] [address] 0 10/27/2019 13:20:27 10/27/2019 14:33:07 Depressive disorder 03304610 F32.9 mostly anger; tried weaning off wellbutrin and didn't go well, very angry [id number] Aryan Sears MD [address] [address] 0 06/28/2020 13:22:46 06/28/2020 16:06:32 Acute sinusitis 36708135 J01.90 [id number] Aryan Sears MD [address] [address] 0 02/09/2021 11:24:39 02/09/2021 12:01:11 Acute sinusitis 05134694 J01.90 [id number] EMERSONJEWEL GRISSOM [address] [address] 0 05/11/2021 12:56:40 05/26/2021 20:42:11 Fibromyositis 69713527 M79.7 Low back pain 912681566 M54.5 [id number] EM[address]EW[address] [address] 0 09/14/2021 10:03:50 09/14/2021 10:45:19 Osteoarthritis of knee 851945053 M17.9 Fibromyositis 56042746 M 79.7 Depressive disorder 3548 9007 F32.A Anxiety 22558031 F41.9 [id number] Aryan Sears MD [address] [address]171 0 10/10/2021 11:17:18 10/10/2021 12:21:27 Depressive disorder 86079803 F32.9 mostly anger; tried weaning off wellbutrin and didn't go well, very angry Arthropathy 555053915 M1 2.9 L5-S1 are bone and bone; neck pain causes zamora. Chronic pain 36114387 G8 9.29 tried oxycontin but a lot of break through pain in the past when on it. Hand pain 09558054 M79.6 43 [facility] 12804171 M25.519 [id number] Aryan Saers MD MAIN SHOP [address] [place] [address] 0 04/25/2022 09:52:22 04/25/2022 10:56:00 Depressive disorder 41084581 F32.9 mostly anger; tried weaning off wellbutrin and didn't go well, very angry Arthropathy 967008899 M1 2.9 L5-S1 are bone and bone; neck pain causes zamora. Chronic pain 24990626 G8 9.29 tried oxycontin but a lot of break through pain in the past when on it. Asthma 378381565 J45.90 9 Hypothyroidism 90038618 E03.9 Adult heal th examination 997835178 Z00.00 Melanocytic nevus 706206 001 D22.9 back of right lower leg. [id number] Aryan Sears MD MAIN SHOP [address] [place] [address]987 0 05/11/2022 11:19:48 05/11/2022 11:52:44 Depressive disorder 00071734 F32.9 mostly anger; tried weaning off wellbutrin and didn't go well, very angry Arthropathy 583629837 M1 2.9 L5-S1 are bone and bone; neck pain causes zamora. Chronic pain 62104244 G8 9.29 tried oxycontin but a lot of break through pain in the past when on it. Asthma 635881534 J45.90 9 Hypothyroidism 97857062 E03.9 [id number] Aryan Sears MD MAIN SHOP [address] [place] [address] 0 07/10/2022 10:40:24 07/10/2022 14:30:41 Depressive disorder 63807388 F32.9 mostly anger; tried weaning off wellbutrin and didn't go well, very angry Arthropathy 456968116 M1 2.9 L5-S1 are bone and bone; neck pain causes zamora. Chronic pain 93375733 G8 9.29 tried oxycontin but a lot of break through pain in the past when on it. Hypothyroidism 33942445 E03.9 repeat tsh Low back pain 901780870 M54.50 [id number] Aryan Sears MD MAIN SHOP [address] [place] [address] 0 10/10/2022 09:23:48 10/10/2022 10:52:17 Arthropathy 772160224 M12.9 L5-S1 are bone and bone; neck pain causes zamora. Chronic pain 50238761 G8 9.29 tried oxycontin but a lot of break through pain in the past when on it. Low back pain 916056826 M54.50 Depressive disorder 3548 9007 F32.9 mostly anger; tried weaning off wellbutrin and didn't go well, very angry Essential hypertension 28923470 I10 Anxiety 87495268 F41.9 Hypothyroidism 88394825 E03.9 Fibromyositis 13627310 M 79.7 [id number] Aryan Sears MD MAIN SHOP [address] [place] [address] 49693[address]339 0 11/07/2022 10:02:27 11/07/2022 10:47:57 Arthropathy 187218348 M12.9 L5-S1 are bone and bone; neck pain causes zamora. Chronic pain 47346563 G8 9.29 tried oxycontin but a lot of break through pain in the past when on it. Low back pain 486261112 M54.50 Depressive disorder 3548 9007 F32.9 mostly anger; tried weaning off wellbutrin and didn't go well, very angry Essential hypertension 45240019 I10 Anxiety 82188317 F41.9 Hypothyroidism 71982821 E03.9 Fibromyositis 18603508 M 79.7 [id number] Aryan Sears MD MAIN SHOP [address] [place] [address]418 0 12/21/2022 10:21:53 12/21/2022 12:23:42 Arthropathy 406351526 M12.9 L5-S1 are bone and bone; neck pain causes zamora. Chronic pain 98772612 G8 9.29 tried oxycontin but a lot of break through pain in the past when on it. Low back pain 060436784 M54.50 Depressive disorder 3548 9007 F32.9 mostly anger; tried weaning off wellbutrin and didn't go well, very angry and did not wean off in the endwants to stop escitalopr am;never got the clonazepam for prn anxiety; [facility]; Anxiety 27555729 F41.9 still an issue when going into grocery store Fibromyositis 40885904 M 79.7 restless legs [id number] Aryan Sears MD MAIN SHOP [address] [place] [address]815 0 02/26/2023 11:11:13 02/26/2023 12:15:53 Arthropathy 419306724 M12.9 L5-S1 are bone and bone; neck pain causes zamora. Depressive disorder 8439 1568 F32.9 retried weaned off the wellbutrin ; ashwaganda root. plus tumeric. helping decrease stresswant s to stop escitalopr am;never got the clonazepam for prn anxiety; had panic attack on entering [facility]; Anxiety 47708798 F41.9 working hard on this; seeing chd soon Fibromyositis 67186739 M 79.7 restless legs [id number] Aryan Sears MD MAIN [address] [address] 0 08/07/2023 08:56:25 08/07/2023 09:28:21 Acute sinusitis 30606244 J01.90 [id number] Aryan Sears MD MAIN SHOP [address] [place] [address] 98841-825 0 10/09/2023 11:23:12 10/09/2023 13:08:01 Acute sinusitis 57147944 J01.90 Chronic ob structive pulmonary disease 20928538 J44.9 Fibromyositis 35392594 M 79.7 restless legs Eczema 78718472 L30.9 Allergic rhinitis 207392 04 J30.9 Neck pain 24425101 M54.2 Weakness o f left lower limb 6956587693 30544 M62.81 Splits in nails 95200084 1 L60.3 Arthropathy 896031839 M1 2.9 L5-S1 are bone and bone; neck pain causes zamora. ; [id number] Aryan Sears MD [address] [address]246[address]087 0 12/06/2023 11:42:43 12/06/2023 12:01:26 Arthropathy 243262611 M12.9 L5-S1 are bone and bone; neck pain causes zamora. ; Difficulty swallowing 28 4770407 R13.10 surgery pending. [id number] Aryan Sears MD [address] 01431-718 0 02/04/2024 08:57:58 02/04/2024 09:51:08 Arthropathy 800092530 M12.9 L5-S1 are bone and bone; neck pain causes zamora. ;eusophage al surgery next month. Complex re gional pain syndrome type II of left lower limb 5345217937 19416 G57.72 [id number] Aryan Sears MD [address] 7[address]22[address]275 0 03/24/2024 11:23:03 03/24/2024 12:12:50 Arthropathy 753458976 M12.9 L5-S1 are bone and bone; neck pain causes zamora. ;eusophage al surgery next month. Complex re gional pain syndrome type II of left lower limb 7449448638 08898 G57.72 [id number] Aryan Sears MD [address] [address]10[address]783 0 04/22/2024 14:15:40 04/22/2024 14:36:51 Asthma 140487483 J45.909 Arthropathy 535282411 M1 2.9 L5-S1 are bone and bone; neck pain causes zmaora. ;eusophage al surgery next month. Complex re gional pain syndrome type II of left lower limb 3841414406 42286 G57.72 Allergic rhinitis 958705 04 J30.9 Chronic ob structive pulmonary disease 07303476 J44.9 [id number] Aryan Sears MD [address] 82738-160 0 04/28/2024 10:28:26 04/28/2024 11:03:54 Arthropathy 484228778 M12.9 L5-S1 are bone and bone; neck pain causes zamora. ;eusophage al surgery next month. Chronic ob structive pulmonary disease 91829434 J44.9 Tobacco user 617544539 Z 72.0 quitting. back on bupropione Depressive disorder 3548 9007 F32.9 retried weaned off the wellbutrin ; ashwaganda root. plus tumeric. helping decrease stresswant s to stop escitalopr am;never got the clonazepam for prn anxiety; had panic attack on entering [employer]; [id number] Aryan Sears MD MAIN [address] [address] 0 07/23/2024 15:54:48 08/07/2024 16:14:12 Fibromyalgia 059273169 M79.7 Acute bronchitis 6142569 2 J20.9 [id number] Aryan Sears MD [address] 67937-218 0 07/28/2024 09:47:41 07/28/2024 10:47:11 Tobacco user 826849510 Z72.0 quit april 2024 Depressive disorder 3548 9007 F32.9 retried weaned off the wellbutrin ; ashwaganda root. plus tumeric. helping decrease stresswant s to stop escitalopr am;never got the clonazepam for prn anxiety; had panic attack on entering [employer]; Allergic rhinitis 266352 04 J30.9 Low back pain 847098981 M54.50 Fibromyositis 80183316 M 79.7 restless legs Hypothyroidism 59421652 E03.9 Dyslipidemia 266381455 E 78.5 Vaginitis 92638468 N76.0 Backache 312925660 M54.9 severe arthritis in backDr. park injected back Arthropathy 805967451 M1 2.9 L5-S1 are bone and bone; neck pain causes zamora. ; [id number] Aryan Sears MD MAIN SHOP [address] [place] [address]180-925 0 09/04/2024 10:25:47 09/04/2024 12:42:07 Cough 45353842 R05.9 Acute bronchitis 7821508 2 J20.9 Arthropathy 041025821 M1 2.9 L5-S1 are bone and bone; neck pain causes zamora. ; Chronic ob structive pulmonary disease 56082972 J44.9 [id number] Aryan Sears MD MAIN [address] [address] 0 09/29/2024 09:23:10 09/29/2024 11:33:31 Arthropathy 042856423 M12.9 L5-S1 are bone and bone; neck pain causes zamora. ; Essential hypertension 02221832 I10 will see if cardio can do the ekg and echo; as they book us 6 months out Systolic murmur 95402186 R01.1 Acute uppe r respiratory infection 20477939 J06.9 Backache 073257887 M54.9 severe arthritis in backDr. park injected back she is looking for back surgery again [id number] Aryan Sears MD [address] [address] 0 2024 09:59:54 2024 11:33:09 Gastroesophageal reflux disease without esophagitis 552483533 K21.9 likely ugi done 2020 Arthropathy 325612535 M1 2.9 L5-S1 are bone and bone; neck pain causes zamora. ; Vaginitis 90838718 N76.0 Prediabetes 191469971 R7 3.03 Ex-smoker 3476681 Z87.89 1 30 p hx just quit now. Chronic ob structive pulmonary disease 96508377 J44.9 [id number] Aryan Sears MD MAIN [address] [address]71[address]551 0 12/24/2024 13:13:31 12/24/2024 15:52:45 Arthropathy 625237930 M12.9 L5-S1 are bone and bone; neck pain causes zamora. ;eusophage al surgery next month. [id number] Aryan Sears MD [address] [address]25[address]098 0 02/02/2025 09:59:45 02/02/2025 10:48:33 Arthropathy 309027453 M12.9 L5-S1 are bone and bone; neck pain causes zamora. ; [id number] Aryan Sears MD MAIN SHOP [address] [place] [address] 23380-677 0 04/14/2025 11:14:47 04/19/2025 18:53:47 Fibromyalgia 322072295 M79.7 [id number] Aryan Sears MD MAIN SHOP [address] [place] [address] 59110-682 0 04/27/2025 11:05:41 04/28/2025 21:56:22 Arthropathy 293462813 M12.9 L5-S1 are bone and bone; neck pain causes zamora. ; Cervical spondylosis 387 550078 M47.812 [id number] Aryan Sears MD MAIN SHOP [address] [place] [address] 60228-261 0 09/03/2025 09:36:08 09/03/2025 15:37:01 Arthropathy 542842121 M12.9 L5-S1 are bone and bone; neck pain causes zamora. ; Pain of le ft shoulder joint 1143661571 6926463 M25.512 745742 Low back pain 597546466 M54.50 221284 Backache 558727709 M54.9 severe arthritis in backDr. park injected back she is looking for back surgery again Health Concerns Section Related Observation LastModified by Organization Detai ls LastModified Time None Recorded Concern Status LastModified by Organization Details LastModified Time None Recorded Advance Directives Directive Y: Payers Insurance Date Sequence Insurance Name Policy Number Policy Hirsch Covered Member ID Hirsch Member ID Guarantor Name 09/03/2025 1 [place] [employer] Sharon Garza [id number] Sharon Garza 09/03/2025 2 [place] [facility] Sharon Garza [id number] Sharon Garza 09/03/2025 1 [place] [employer] Sharon Garza [id number] Sharon Garza 09/03/2025 1 [facility] (MEDICARE REPLACEMENT/ ADVANTAGE - HMO) [id number] Sharon Garza [id number] Sharon Garza 09/03/2025 [facility] (MEDICARE REPLACEMENT/ ADVANTAGE - HMO) [id number] Sharon Garza [id number] Sharon Garza OBGyn Episode No OBEpisode recorded.
--- OUTSIDE RECORDS SUMMARY | 2025-09-25 11:16 | XMS_ITS | Encounter Summary ---
Author Organization [facility] Address [address] [place] [address] Phone Care Team Providers Care Wafer Slicer Name Role Phone Henry Velez MD Unavailable [email or web address] Ike Gomez DO Unavailable Aryan Sears MD Unavailable [phone] Amy SawyerC Unavailable [phone] Lorri Haynes MD Unavailable Aryan Sears MD Primary Care Provider Shi Espana NP Primary Care Provider Shi Espana NP Primary Care Provider Reason for Referral * MRI/CAT Scan - Closed Specialty Diagnoses / Procedures Referred By Roddy marie Referred To Contact Radiology Diagnoses RLQ abdominal pain Change in bowel habits Procedures CT Abdomen/Pelvis Amara Butt CNP Phone: tel: fax: [email or web address] Referral ID Status Reason Start Date Expiration Date Visits Re quested Visits Authorized [id number] Closed 04/21/2019 04/20/2020 1 1 Encounter Details Date Type Department Care Team (Latest Contact Info) Description 04/21/2019 Transcribe Orders Virtual Department [address] [place] [address] Amara Butt CNP [address] [place] [address] [email or web address] RLQ abdominal pain (Primary Dx); Change in bowel habits Social History Tobacco Use Types Packs/Day Years Used Date Smoking Tobacco: Former Cigarettes 0.3 45 1 953 - 3533 Smokeless Tobacco: Never Alcohol Use Standard Drinks/Week [...] documented as of this encounter Results * CT ABDOMEN/PELVIS WITH CONTRAST (04/24/2019 3:26 PM EDT) Anatomical Region Laterality Modality Abdomen, Pelvis Computed Tomogra phy 04/24/2019 4:35 PM EDT Impressions 04/24/2019 5:36 PM EDT 1. No acute findings in the abdomen and pelvis. 2. Mild sigmoid colonic diverticulosis. TOTAL CTDIvol: 9.20 mGy POS - [id number] Edited by: Julisa Deleon on 04/24/2019 4:48 PM Narrative 04/24/2019 5:36 PM EDT EXAM: CT ABDOMEN/PELVIS WITH CONTRAST HISTORY: Nausea, constipation, abdominal pain. TECHNIQUE: CT imaging of the abdomen and pelvis. Helical axial images obtained with reconstructed coronal and sagittal images. IV contrast: 100 mL of Omnipaque 240 contrast. Oral contrast: 30 mL of Gastrografin. Radiation dose control: Exam performed with automated exposure control or iterative reconstruction to minimize radiation exposure. COMPARISON: None. CT ABDOMEN/PELVIS FINDINGS: Visualized lower chest: Lung bases are clear. No lung base pleural effusion. The imaged heart is normal in size. Liver: Normal in attenuation. No liver masses. No surface nodularity. Right lobe of the liver extends inferior to the right kidney with the appearance of normal variation Marcos's lobe. Spleen: Normal in size and attenuation. No splenic masses. Gallbladder: Normal. No calcified gallstones. No gallbladder wall thickening. Biliary tree: Normal. No biliary ductal dilatation. Pancreas: Normal. No pancreatic mass or ductal dilatation. Kidneys/ureters: Normal symmetric renal enhancement. There is no hydronephrosis or hydroureter. There are no renal calculi. Adrenal glands: Normal. No adrenal nodules. Gastrointestinal tract: There is mild sigmoid colonic diverticulosis. No evidence for acute diverticulitis. Moderate stool volume in the colon. The appendix is normal. Normal appearance of the stomach and small bowel. Vasculature: Normal diameter of the abdominal aorta. Mild to moderate arterial calcification. Peritoneum/retroperitoneum: No abdominal or pelvic ascites. There is no free air. Lymph nodes: No retroperitoneal, mesenteric, pelvic sidewall or inguinal adenopathy. Bladder: Normal. There is no bladder wall thickening, mass or calculus. Reproductive: Prior hysterectomy. No pelvic masses. Abdominal and pelvic wall: No significant abnormalities. Bones: No suspicious lytic or blastic bone lesions. There is 3 mm retrolisthesis of L1 on L2. There is multilevel degenerative disc space narrowing with endplate changes most pronounced at T11-T12 and L1-L2. Multilevel facet arthritic changes. There is no acute fracture. Procedure Note Carmen Salazar MD - 04/24/2019 EXAM: CT ABDOMEN/PELVIS WITH CONTRAST HISTORY: Nausea, constipation, abdominal pain. TECHNIQUE: CT imaging of the abdomen and pelvis. Helical axial images obtained withreconstructed coronal and sagittal images. IV contrast: 100 mL of Omnipaque 240 contrast. Oral contrast: 30 mL of Gastrografin. Radiation dose control: Exam performed with automated exposure control oriterative reconstruction to minimize radiation exposure. COMPARISON: None. CT ABDOMEN/PELVIS FINDINGS: Visualized lower chest: Lung bases are clear. No lung base pleuraleffusion. The imaged heart is normal in size. Liver: Normal in attenuation. No liver masses. No surface nodularity.Right lobe of the liver extends inferior to the right kidney with theappearance of normal variation Marcos's lobe. Spleen: Normal in size and attenuation. No splenic masses. Gallbladder: Normal. No calcified gallstones. No gallbladder wallthickening. Biliary tree: Normal. No biliary ductal dilatation. Pancreas: Normal. No pancreatic mass or ductal dilatation. Kidneys/ureters: Normal symmetric renal enhancement. There is nohydronephrosis or hydroureter. There are no renal calculi. Adrenal glands: Normal. No adrenal nodules. Gastrointestinal tract: There is mild sigmoid colonic diverticulosis. Noevidence for acute diverticulitis. Moderate stool volume in the colon. Theappendix is normal. Normal appearance of the stomach and small bowel. Vasculature: Normal diameter of the abdominal aorta. Mild to moderatearterial calcification. Peritoneum/retroperitoneum: No abdominal or pelvic ascites. There is nofree air. Lymph nodes: No retroperitoneal, mesenteric, pelvic sidewall or inguinaladenopathy. Bladder: Normal. There is no bladder wall thickening, mass or calculus. Reproductive: Prior hysterectomy. No pelvic masses. Abdominal and pelvic wall: No significant abnormalities. Bones: No suspicious lytic or blastic bone lesions. There is 3 mmretrolisthesis of L1 on L2. There is multilevel degenerative disc spacenarrowing with endplate changes most pronounced at T11-T12 and L1-L2.Multilevel facet arthritic changes. There is no acute fracture. IMPRESSION: 1. No acute findings in the abdomen and pelvis. 2. Mild sigmoid colonic diverticulosis. TOTAL CTDIvol: 9.20 mGy POS - [id number] Edited by: Julisa Deleon on 04/24/2019 4:48 PM Amara Butt CNP IMG CT ABD/PELVIS Final Re sult documented in this encounter Visit Diagnoses Diagnosis RLQ abdominal pain- Primary Abdominal pain, right lower quadrant Change in bowel habits Other symptoms involving digestive system RLQ abdominal pain Abdominal pain, right lower quadrant Change in bowel habits Other symptoms involving digestive system documented in this encounter Care Teams Wafer Slicer Relationship Specialty Start Date End Date Aryan Sears MD [address] [place] [phone] PCP - General Family Medicine 09/27/17 06/27/23 Shi Espana NP [address] [place] [phone] [email or web address] PCP - General Nurse Practitioner 06/28/23 09/28/24 Shi Espana NP [address] [place] [phone] [email or web address] PCP - General Nurse Practitioner 09/29/24 Henry Velez MD [email or web address] Historical LMR Provider 08/30/17 Ike Gomez DO [address] [place] [address] [facility], [place], [place] [id number] [email or web address] Historical LMR Provider 08/30/17 Aryan Sears MD [address] [place] [phone] Historical LMR Provider 08/30/17 Amy Sawyer PA-C [address] [place] [address] [facility], [place], [place] [id number] Historical LMR Provider 08/30/17 11/19/21 Lorri Haynes MD [address] [place] [address] [facility], [place] [address] Historical LMR Provider 08/30/17 documented as of this encounter Additional Source Comments The information contained in this document represents components of the legal health record. It is not the complete legal health record.[facility]
--- OUTSIDE RECORDS SUMMARY | 2025-09-25 11:17 | XMS_ITS | Continuity of Care Document ---
Author Organization [facility] Address [address] [place] [phone] Assessment Encounter Date Assessment Date Assessment LastModified by Organization Details LastModified Time 09/03/2025 09/03/2025 neuro surge; dr. barkley wants [...] taking >1/2 time in compensatory complex care, group counselor, evaluation, education, negotiation, and coordination of treatment plan with pt present All care was consented with risks/benefits and all standard medically indicated history, exam, assessment, plan and education explained with all questions answered, pt expressing understanding and appearing satisfied and stable upon departure with care replacing an Urgent Care/ER visit today [email or web address] Not available 09/03/2025 15:17:39 Plan of Treatment Reminders Order Date Submit Date Provider Last Modified By Organization Details Last Modified Time Details Appointments None recorded. Lab None recorded. Referral orthopedic surgeon referral 2024 ARIK Holley MD, [address] [place], [address], 04:03:29 neurologica l surgeon referral 2024 ARIK Luz MD, [address] [place] [address] [place], [address], 04:03:29 Procedures None recorded. Surgeries None recorded. Imaging None recorded. Medication Orders oxycodone 10 mg tablet 2024 [id number], [address] [place], [place], [id number], 10:27:49 Patient TargetsNo targets recorded. Patient InstructionsNo instructions recorded. Reason for Referral Orthopedic Surgeon Referral for Pain of left shoulder joint Referring Physician: [facility], Encounter Date: 09/03/2025 Neurological Surgeon Referra l for Low back pain Referring Physician: [facility], Encounter Date: 09/03/2025 Results Created Date Observation Date Name Description Value Unit Range Abnormal Flag Note LastModifiedBy Organization Detail LastModifiedTime 08/12/2008/11/2025 MAMMO , scree su, bilat eral No observ ation record ed. [address], [address], 08/13/2025 11:55:39 09/15/20 25 MRI, lumba r spine , w/o contr ast No observ ation record ed. brianna Not Available 2024 11:55:50 09/15/20 25 XR, lumba r spine , 2 view No observ ation record ed. wlamorie Not Available 2024 11:56:54 Result Notes None recorded. Problems Name Problem SNOMED Code Status Onset Date Resolution Date Notes Provider Name and Address Organization Details Recorded Time Otitis externa 4946831 Completed 10/09/2017 Aryan Sears MD [address] [place] [address], [phone] , [facility] 7 09:13:02 Fibromyo sitis 44676504 Active disabili ty - complex regional pain syndrome , mood d/o Aryan Sears MD [address] [place] [address], [address] , [facility] 3 15:12:42 Acute sinusiti s 78078970 Completed 10/09/2017 Aryan Sears MD [address] [place] [address], [address] , [facility] 5 17:58:38 Hypertri glycerid emia 946016883 Active Aryan Sears MD [address] [place] [address], [address] , [facility] 3 15:12:42 Mammogra phy abnormal 626760527 Completed 04/22/2024 Aryan Sears MD [address] [place] [address], [address] , [facility] 4 14:24:32 Low back pain 643925711 Active Shi Espana NP [address] [place] [address], [address] , [facility] 5 10:20:40 Chest pain 08624095 Completed 10/09/2017 Aryan Sears MD [address] [place] [address], [address] , [facility] 7 09:12:55 Sinusiti s 91278530 Completed 10/09/2017 Aryan Sears MD [address] [place] [address], [address] , [facility] 7 09:12:24 Vaginiti s 96924516 Completed 10/09/2017 Shi Espana NP [address] [place] [address], [address] , [facility] 5 10:55:21 Hypothyr oidism 70578116 Active Aryan Sears MD [address] [place] [address], [address] , [facility] 3 15:12:42 Restless legs syndrome 40861546 Active Aryan Sears MD [address] [place] [address], [address] , [facility] 3 15:12:42 Depressi ve disorder 29831793 Active Aryan Sears MD [address] [place] [address], [address] , [facility] 3 15:12:42 Asthma 406953080 Active Aryan Sears MD [address] [place] [address], [address] , [facility] 3 15:12:42 Essentia l hyperten yashira 10934353 Active Aryan Sears MD [address] [place] [address], [address] , [facility] 3 15:12:42 Cough 47776767 Completed 10/09/2017 Shi Espana, ANA [address] [place] [address], [address] , [facility] 4 11:02:07 Rotator cuff impingem ent syndrome 418065128 Active 2014 Aryan Sears MD [address] [place] [address], [address] , [facility] 3 15:12:42 Osteoart hritis of knee 689839199 Active 2016 L knee arthropl asty 02/28 - s/p prior ortho report of L lateral compartm ent which is atypical for OA & not a surgical candidat e with regional pain syndrome et al. Aryan Sears MD [address] [place] [address], [address] , [facility] 3 15:12:42 Complex regional pain syndrome type II of left lower limb 72078979841 9103 Active 2017 Aryan Sears MD [address] [place] [address], [address] , [facility] 3 15:12:42 Chronic obstruct augustine pulmonar y disease 70606926 Active 2017 Aryan Sears MD [address] [place] [address], [address] , [facility] 3 15:12:41 Fibromya lgia 412619759 Active 2017 Aryan Sears MD [address] [place] [address], [address] , [facility] 3 15:12:42 Greater trochant richie pain syndrome 0485931 Active 2018 Aryan Sears MD [address] [place] [address], [address] , [facility] 3 15:12:42 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 64523090716 97036 Active 2018 Aryan Sears MD [address] [place] [address], [address] , [facility] 3 15:12:41 History of operativ e procedur e on knee 132102420 Active 2018 Aryan Sears MD [address] [place] [address], [address] , [facility] 3 15:12:42 Gastroes ophageal reflux disease 054464229 Active 2018 Aryan Sears MD [address] [place] [address], [address] , [facility] 3 15:12:42 Subluxat ion of sternocl avicular joint 760759823 Active 2018 Aryan Sears MD [address] [place] [address], [address] , [facility] 3 15:12:42 Spinal enthesop athy of cervical region Active 2019 Aryan Sears MD [address] [place] [address], [address] , [facility] 3 15:12:42 Cervical spondylo sis 522399204 Active 2019 Aryan Sears MD [address] [place] [address], [address] , [facility] 3 15:12:42 Anxiety 63846868 Active 2020 Aryan Sears MD [address] [place] [address], [address] , [facility] 3 15:12:42 Mammogra phy normal 816467078 Active 2021, repeat 05/2024 Aryan Sears MD [address] [place] [address], [address] , [facility] 3 15:12:42 Arthropa thy 263479255 Active 2021 Aryan Sears MD [address] [place] [address], [address] , [facility] 3 15:12:42 Melanocy tic nevus 596219718 Active 2021 Aryan Sears MD [address] [place] [address], [address] , [facility] 3 15:12:42 Abdomina l pain 92621016 Active 2021 Aryan Sears MD [address] [place] [address], [address] , [facility] 3 15:12:42 Chronic pain 84558579 Active 2022 Aryan Sears MD [address] [place] [address], [address] , [facility] 3 15:12:42 Chronic pain followin g left total knee arthropl asty 36696777994 893879 Active 2022 Aryan Sears MD [address] [place] [address], [address] , [facility] 3 15:12:41 Narcotic drug user 64509672 Completed 202204/22/2024 Removal Reason: sober 35 yrs 04/2024 Aryan Sears MD [address] [place] [address], [address] , [facility] 4 14:24:55 Acute sinusiti s 52775662 Completed 202204/18/2025 Aryan Sears MD [address] [place] [address], [address] , [facility] 5 17:58:38 Candidia sis of vagina 40288189 Completed 202204/18/2025 Aryan Sears MD [address] [place] [address], [address] , [facility] 5 17:59:01 Eczema 48709377 Active 2022 Shi Espana NP [address] [place] [address], [address] , [facility] 3 12:18:34 Allergic rhinitis 86671461 Active 2022 Shi Espana NP [address] [place] [address], [address] , [facility] 3 12:20:04 Neck pain 41325345 Active 2022 Shi Espana NP [address] [place] [address], [address] , [facility] 3 12:27:10 Weakness of left lower limb Active 2022 Shi Espana NP [address] [place] [address], [address] , [facility] 3 12:27:27 Splits in nails 246668670 Active 2022 Shi Espana NP [address] [place] [address], [address] , [facility] 3 12:32:20 Difficul ty swallowi ng 741267069 Completed 202304/22/2024 s/p throat surgery much improved Removal Reason: s/p surgery much improved Aryan Sears MD [address] [place] [address], [address] , [facility] 4 14:25:26 Chronic sinusiti s 85111902 Active 2023 Shi Espana NP [address] [place] [address], [address] , [facility] 4 12:18:58 Backache 385020533 Active 2023 Shi Espana NP [address] [place] [address], [address] , [facility] 4 10:43:26 Dyslipid emia 853298504 Active 2023 Shi Espana NP [address] [place] [address], [address] , [facility] 4 10:34:43 Cough 38820934 Active 2023 Shi Espana NP [address] [place] [address], [address] , [facility] 4 11:02:07 Systolic murmur 44878921 Active 2023 Shi Espana NP [address] [place] [address], [address] , [facility] 4 10:06:47 Acute upper respirat ory infectio n 77979383 Completed 202304/18/2025 Aryan Sears MD [address] [place] [address], [address] , [facility] 5 17:58:30 Gastroes ophageal reflux disease without esophagi tis 363897954 Active 2024 Shi Espana NP [address] [place] [address], [address] , [facility] 5 10:50:00 Vaginiti s 43961497 Active 2024 Shi Espana NP [address] [place] [address], [address] , [facility] 5 10:55:21 Prediabe kavon 669250998 Active 2024 Shi Espana NP [address] [place] [address], [address] , [facility] 5 10:57:06 Pain of left shoulder joint 01274563156 670531 Active 2024 Shi Espana NP [address] [place] [address], [address] , [facility] 5 10:16:25 Notes:medication pain agreem ent completed 11/06/2022. wl Problem Notes None recorded. Medical Equipment None Reported. Allergies Allergen ID Allergen Name Allergen Category Reaction Reaction Severity Criticality Documentation Date Start Date Code Code System Note Provider Name and Address Organization Details Recorded Time 65465 povidone- iodine medicatio n rash Not available Not available 06/28/20232014 8611 RxNorm Other react ions and sever ities : 'Derm atiti s'. Aryan Sears MD [address] [place] [address], [address], [facility] 3 15:12:10 61118 celecoxib medicatio n Not available Not available Not available 06/28/20232018 11930 7 RxNorm Aryan Sears MD [address] [place] [address], [address], [facility] 3 15:12:10 87140 avocado allergeni c extract food,medi cation other Not available Not available 06/28/20232017 61112 2 RxNorm Aryan Sears MD [address] [place] [address], [address], [facility] 3 15:12:10 4101 Betadine medicatio n rash Not available Not available 09/09/2013 00845 0 RxNorm Aryan Sears MD [address] [place] [address], [address], [facility] 3 09:53:19 4102 morphine medicatio n Not available Not available Not available 09/09/2013 7052 RxNorm Other react ions and sever ities : 'Naus ea and/o r Vomit ing'. Aryan Sears MD [address] [place], [address], [facility] 3 15:12:10 7331 latex environme nt,medica tion rash Not available Not available 11/07/20162014 25627 91 RxNorm Other react ions and sever ities : 'Derm atiti s'. Aryan Sears MD [address] [place], [address], [facility] 3 15:12:10 Medications Name Sig Start Date [...] Not Available Not Available Not Available Vitals None Recorded Social History Question Answer Notes LastModified by Organizat ion Details LastModified Time Tobacco Smoking Status Never Smoker Not Available [employer] 09/14/2020 03:12:41 Do You Have An Advance Directive? Yes [id number] Information not available 09/14/2020 What Is Your Level Of Caffeine Consumption? Moderate [id number] Information not available 09/14/2020 How Much Tobacco Do You Chew? None [id number] Information not available 09/14/2020 What Type Of Diet Are You Following? REGULAR Avoids Red Meat [id number] Information not available 09/14/2020 Education 2 Year College Information not available 09/09/2013 Are There Any Guns Present In Your Home? No [id number] Information not available 09/14/2020 Marital Status Informatio n not available 09/09/2013 What Was The Date Of Your Most Recent Tobacco Screening? 01/21/2019 [id number] Information not available 09/14/2020 Seat Belts Used Routinely Yes Information not available 09/09/2013 Smoke Alarm In Home Yes Information not available 09/09/2013 General Stress Level Medium Information not available 09/09/2013 Do You Use Sunscreen Routinely? Yes [id number] Information not available 09/14/2020 Sex: Unknown Functional Status Question Answer Note LastModified by Organizat ion Details LastModified Time What is your level of alcohol consumption? 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 None returning to [employer] pool [id number] Information not available 09/14/2020 Mental Status None [...] mcg/0.3 mL dose 1 completed Not Available [facility] 06/28/2023 10:52:12 influenza, unspecified formulation 3 completed Aryan Sears MD [address] [place] [address], [address], [facility] 09/11/2023 08:09:09 COVID-19, mRNA, LNP-S, PF, 50 mcg/0.5 mL 3 completed Aryan Sears MD [address] [place] [address], [address], [facility] 09/17/2023 14:21:15 RSV, recombinant, protein subunit RSVpreF, adjuvant reconstituted, 0.5 mL, PF 3 completed Aryan Sears MD [address] [place] [address], [address], [facility] 09/17/2023 14:23:31 COVID-19, mRNA, LNP-S, PF, 30 mcg/0.3 mL dose 4 completed Aryan Sears MD [address] [place] [address], [address], [facility] 07/17/2024 11:42:00 Influenza, recombinant, quadrivalent, PF 4 completed Aryan Sears MD [address] [place] [address], [address], [facility] 07/17/2024 11:43:16 HepB-CpG 5 completed Aryan Sears MD [address] [place] [address], [address], [facility] 03/18/2025 13:37:47 Past Encounters Encounter ID Performer Location Encounter Start Date Encounter Closed Date Diagnosis/Indication Diagnosis SNOMED-CT Code Diagnosis ICD10 Code Diagnosis IMO Codes Diagnosis Note [id number] Aryan Sears MD [facility] [address] [place] [phone] 09/03/2025 09:36:08 09/03/2025 15:37:01 Arthropathy 721788431 M12.9 L5-S1 are bone and bone; neck pain causes zamora. ; Pain of le ft shoulder joint 4983645859 0467681 M25.512 090026 Low back pain 379800373 M54.50 004482 Backache 500499679 M54.9 severe arthritis in backDr. lacie injected back she is looking for back surgery again Health Concerns Section Related Observation LastModified by Organization Detai ls LastModified Time None Recorded Concern Status LastModified by Organization Details LastModified Time None Recorded Payers Encounter Date Sequence Insurance Name Policy Number Policy Hirsch Covered Member ID Hirsch Member ID Guarantor Name 09/03/2025 1 [place] [employer] Sharon Garza [id number] Sharon Garza 09/03/2025 2 [place] [facility] Sharon Garza [id number] Sharon Garza OBGyn Episode No OBEpisode recorded.
--- OUTSIDE RECORDS SUMMARY | 2025-09-25 11:17 | XMS_ITS | Encounter Summary ---
Author Organization [facility] Address [address] [place] [address] Phone Care Team Providers Care Pneumatic Systems Operator Name Role Phone Henry Velez MD Unavailable [email or web address] Ike Gomez DO Unavailable [phone] Aryan Sears MD Unavailable Amy Sawyer PA-C Unavailable [phone] Lorri Haynes MD Unavailable [phone] Aryan Sears MD Primary Care Provider Shi Espana NP Primary Care Provider Shi Espana LOGISTICS ACCOUNT MANAGER Primary Care Provider [phone] Encounter Details Date Type Department Care Team (Late st Contact Info) Description 01/15/2019 Transcribe Orders [facility] [address] [place] [address] Peter Holley MD [address] [place] [address] Orthopedics & Sports Medicine, [facility]. [place], [place] [id number] Social History Tobacco Use Types Packs/Day Years [...] on filedocumented in this encounter Care Teams Pneumatic Systems Operator Relationship Specialty Start Date End Date Aryan Sears MD [address] [place] [phone] PCP - General Family Medicine 09/27/17 06/27/23 Shi Espana NP [address] [place] [phone] [email or web address] PCP - General Nurse Practitioner 06/28/23 09/28/24 Shi Espana NP [address] [place] [phone] [email or web address] PCP - General Nurse Practitioner 09/29/24 Henry Velez MD [email or web address] Historical LMR Provider 08/30/17 Ike Gomez DO [address] [place] [address] Orthopedics & Sports Medicine, [place] [address] [email or web address] Historical LMR Provider 08/30/17 Aryan Sears MD [address] [place] [phone] Historical LMR Provider 08/30/17 Amy Sawyer PA-C [address] [facility], [place] [address] Historical LMR Provider 08/30/17 11/19/21 Lorri Haynes MD [address] [facility], [place], [place] [id number] [email or web address] Historical LMR Provider 08/30/17 documented as of this encounter Additional Source Comments The information contained in this document represents components of the legal health record. It is not the complete legal health record.[facility]
== END 2025-09-25 11:24 | disposition home or self-care (01) ==
LOC: HO.HNS 09:55
PROVIDERS: PCP Nurse Practitioner Family; Referring Provider Nurse Practitioner Family; Visit Provider Neurological Surgery
DX: M43.16 Spondylolisthesis, lumbar region (principal)
CPT/HCPCS: 99204

== ENCOUNTER → 2025-09-25 10:25 | Outpatient (BNV) | payer MEDICARE, MEDICAID, SELFPAY | PROVIDERS: PCP Nurse Practitioner Family; Referring Provider Nurse Practitioner Family; Visit Provider Radiology Diagnostic Radiology | DX: M43.16 Spondylolisthesis, lumbar region (principal); M47.815 Spondylosis without myelopathy or radiculopathy, thoracolumbar region; I70.90 Unspecified atherosclerosis | CPT/HCPCS: 72110 ==